=== PATIENT | female | born 1965 | race Caucasian/White ===

== ENCOUNTER 2017-07-30 16:21 | Emergency (ER) | payer OTHER ==
[~2017-07-30] VITALS: Ht 175.3 cm; Wt 136.1 kg
[~2017-07-30 16:21] MED LIST: ALBU90OI6 INH; ALPR.5; ALPR1 PO; ATEN25; ATOR40TA PO; AZIT250 PO; AZIT500 PO; CARI350; CARI350 PO; CIPHYDOTSU OT; CIPR500 PO; CLIN300 PO; CLON.5 PO; CLOT10 SUSW; Celexa40 MG PO; DOXY100 PO; DULO30; DULO60; ESTR2; ESTR2 PO; Esgic Tablet1 EACH PO; FENO145 PO; FLORICET PO; FLUV40; FURO20 PO; GABA100 PO; GLIP5; HYDACE10B; HYDACE10B PO; HYDACE5; HYDACE5 PO; HYDR1TAB94; IBUHYD PO; IBUP800; IBUP800 PO; INSULANPEN SC; KETO10 PO; LEVSOD75 PO; LORA1 PO; META800 PO; METCAR500; METF500; METF500 PO; METO10 PO; Norco 10-325 T1 EACH PO; Norco 5-325 Ta1 EACH PO; ONDA4 PO; OXYACE5T PO; OXYC30; PHENA200 PO; PIOG15; PIOG45 PO; POTCHL10ER PO; PRED10 PO; PROM25 PO; Prednisone20 MG PO; Prilosec Otc20 MG PO; QNASL8.7 GM; QUET100 PO; QUET200; QUET200 PO; RXOXYACE PO; TAMS.4ER PO; TORSE20 PO; TRAM50 PO; TRAZ100; Zithromax250 MG PO; [UNRECOGNIZED DRUG - OTHER]
[2017-07-30 17:13] LABS: BASOPHILS ABSOLUTE AUTO 0.03 K/mm3 (0.00-0.23); BASOPHILS PERCENT AUTO 0 % (0-2); EOSINOPHILS PERCENT AUTO 2 % (0-6); Hemoglobin 11.1 g/dL (11.5-16.0); IMMATURE GRAN ABSOLUTE AUTO 0.06 K/mm3 (0.00-0.10); IMMATURE GRAN PERCENT AUTO 1 % (0-1); LYMPHOCYTES ABSOLUTE AUTO 3.37 K/mm3 (0.84-5.20); LYMPHOCYTES PERCENT AUTO 26 % (21-46); MONOCYTES ABSOLUTE AUTO 0.81 K/mm3 (0.16-1.47); MONOCYTES PERCENT AUTO 6 % (4-13); Mean Corpuscular HGB 26.9 pg (26.0-34.0); Mean Corpuscular HGB Conc 30.8 g/dL (31.5-36.5); Mean Corpuscular Volume 87 fL (80-100); Mean Platelet Volume 11.8 fL (9.1-12.4); NEUTROPHILS ABSOLUTE AUTO 8.54 K/mm3 (1.96-9.15); NEUTROPHILS PERCENT AUTO 65 % (41-73); Platelet Count 217 K/mm3 (150-400); RDW Coefficient Variation 17.8 % (11.7-14.2); RDW Standard Deviation 57.1 fL (35.1-46.3); Red Blood Cell Count 4.13 M/mm3 (3.80-5.20); White Blood Cell Count 13.11 K/mm3 (4.00-11.30)
[2017-07-30 17:29] LABS: Alanine Aminotransfer (ALT/SGP 23 U/L (12-78); Albumin, Blood 3.5 g/dL (3.4-5.0); Albumin/Globulin Ratio 0.9 (0.8-1.8); Alk Phos 96 U/L (50-136); Anion Gap 10 mmol/L (6-16); Aspartate Aminotrans (AST/SGOT 13 U/L (12-37); Bilirubin, Total 0.2 mg/dL (0.1-1.0); Blood Urea Nitrogen 37 mg/dL (8-24); CO2, Blood 22 mmol/L (21-32); Calcium, Blood 9.1 mg/dL (8.5-10.1); Chloride, Blood 105 mmol/L (98-108); Creatinine, Blood 1.32 mg/dL (0.40-1.00); Globulin, Blood 4.1 g/dL (2.2-4.0); Glomerular Filtration Rate 45 (60-); Glucose, Blood 172 mg/dL (70-99); Potassium, Blood 4.8 mmol/L (3.5-5.5); Sodium, Blood 137 mmol/L (136-145); Total Protein, Blood 7.6 g/dL (6.4-8.2); Troponin I <0.015 ng/mL (0.000-0.040)
[2017-07-30 17:44] LABS: Source, Urine Clean Catch
[2017-07-30 17:47] LABS: Bilirubin, Urine Neg (Neg); Blood, Urine Neg (Neg); Glucose Qualitative, Urine Neg (Neg); Ketones, Urine Neg (Neg); Leukocyte Esterase, Urine Neg (Neg); Nitrite, Urine Neg (Neg); Protein, Urine 2+ (Neg); Urobilinogen, Urine NORM (Normal)
[2017-07-30 17:52] LABS: Appearance, Urine Clear (Clear); Color, Urine Yellow (P-Yellow)
[2017-07-30 17:53] LABS: Bacteria Not Seen /hpf; Red Blood Cells, Urine Not Seen /hpf (0-2); Squamous Epithelial Cells Not Seen /hpf (Few); White Blood Cells, Urine Not Seen /hpf (0-5)
== END 2017-07-30 19:11 | disposition left against medical advice (07) ==
LOC: ER 16:21
PROVIDERS: Physician Assistant
DX: R55 Syncope and collapse (principal); N28.9 Disorder of kidney and ureter, unspecified; E11.9 Type 2 diabetes mellitus without complications; J44.9 Chronic obstructive pulmonary disease, unspecified; F17.210 Nicotine dependence, cigarettes, uncomplicated; Z88.8 Allergy status to other drugs, medicaments and biological substances; Z88.1 Allergy status to other antibiotic agents; Z88.2 Allergy status to sulfonamides; Z88.5 Allergy status to narcotic agent; Z79.899 Other long term (current) drug therapy; Z79.4 Long term (current) use of insulin
CPT/HCPCS: 36415; 71046; 80053; 81001; 83880; 84484; 85025; 93005; 93010; 96374; 99284; J3010

== ENCOUNTER → 2017-10-02 | Outpatient (CLI) | payer OTHER ==
[2017-10-02 13:17] LABS: BASOPHILS ABSOLUTE AUTO 0.06 K/mm3 (0.00-0.23); BASOPHILS PERCENT AUTO 1 % (0-2); EOSINOPHILS ABSOLUTE AUTO 0.39 K/mm3 (0.00-0.68); EOSINOPHILS PERCENT AUTO 3 % (0-6); Hematocrit 35.8 % (33.0-51.0); Hemoglobin 11.1 g/dL (11.5-16.0); IMMATURE GRAN ABSOLUTE AUTO 0.07 K/mm3 (0.00-0.10); IMMATURE GRAN PERCENT AUTO 1 % (0-1); LYMPHOCYTES ABSOLUTE AUTO 2.66 K/mm3 (0.84-5.20); LYMPHOCYTES PERCENT AUTO 21 % (21-46); MONOCYTES ABSOLUTE AUTO 0.66 K/mm3 (0.16-1.47); MONOCYTES PERCENT AUTO 5 % (4-13); Mean Corpuscular HGB 25.9 pg (26.0-34.0); Mean Corpuscular Volume 83 fL (80-100); Mean Platelet Volume 11.6 fL (9.1-12.4); NEUTROPHILS ABSOLUTE AUTO 9.02 K/mm3 (1.96-9.15); NEUTROPHILS PERCENT AUTO 70 % (41-73); Platelet Count 212 K/mm3 (150-400); RDW Coefficient Variation 17.2 % (11.7-14.2); Red Blood Cell Count 4.29 M/mm3 (3.80-5.20); White Blood Cell Count 12.86 K/mm3 (4.00-11.30)
[2017-10-02 13:33] LABS: Albumin, Blood 3.5 g/dL (3.4-5.0); Albumin/Globulin Ratio 0.8 (0.8-1.8); Bilirubin, Total 0.4 mg/dL (0.1-1.0); Bun/Creatinine Ratio 25.2 (12.0-20.0); Calcium, Blood 9.3 mg/dL (8.5-10.1); Creatinine, Blood 1.19 mg/dL (0.40-1.00); Globulin, Blood 4.4 g/dL (2.2-4.0); Potassium, Blood 4.6 mmol/L (3.5-5.5); Total Protein, Blood 7.9 g/dL (6.4-8.2)
== END | disposition home or self-care (01) ==
LOC: LAB EV 13:10 → LAB SHORT 13:10
PROVIDERS: Physician Assistant Medical
DX: E11.9 Type 2 diabetes mellitus without complications (principal); R53.83 Other fatigue
CPT/HCPCS: 80053; 83036; 85025

== ENCOUNTER 2018-01-29 11:09 | Emergency (ER) | payer OTHER ==
[~2018-01-29] VITALS: Ht 177.8 cm; Wt 136.1 kg
[~2018-01-29 11:09] MED LIST changes: +ALBU3IS; +Augmentin 875-1 EACH PO; +BASAGLAR K100 UNIT/1 SC; +BUDE6HFA INH; +LOSA50 PO; +Ventolin/Prove6.7 GM
[2018-01-29 11:49] LABS: BASOPHILS ABSOLUTE AUTO 0.04 K/mm3 (0.00-0.23); BASOPHILS PERCENT AUTO 0 % (0-2); EOSINOPHILS ABSOLUTE AUTO 0.16 K/mm3 (0.00-0.68); EOSINOPHILS PERCENT AUTO 1 % (0-6); Hematocrit 35.7 % (33.0-51.0); Hemoglobin 10.6 g/dL (11.5-16.0); IMMATURE GRAN ABSOLUTE AUTO 0.08 K/mm3 (0.00-0.10); IMMATURE GRAN PERCENT AUTO 1 % (0-1); LYMPHOCYTES ABSOLUTE AUTO 2.42 K/mm3 (0.84-5.20); LYMPHOCYTES PERCENT AUTO 18 % (21-46); MONOCYTES ABSOLUTE AUTO 0.56 K/mm3 (0.16-1.47); MONOCYTES PERCENT AUTO 4 % (4-13); Mean Corpuscular HGB Conc 29.7 g/dL (31.5-36.5); Mean Corpuscular Volume 84 fL (80-100); Mean Platelet Volume 11.1 fL (9.1-12.4); NEUTROPHILS PERCENT AUTO 76 % (41-73); Platelet Count 185 K/mm3 (150-400); RDW Coefficient Variation 17.7 % (11.7-14.2); RDW Standard Deviation 53.8 fL (35.1-46.3); Red Blood Cell Count 4.24 M/mm3 (3.80-5.20); White Blood Cell Count 13.66 K/mm3 (4.00-11.30)
[2018-01-29 12:05] LABS: Albumin, Blood 3.1 g/dL (3.4-5.0); Albumin/Globulin Ratio 0.8 (0.8-1.8); Bilirubin, Total 0.6 mg/dL (0.1-1.0); Bun/Creatinine Ratio 20.1 (12.0-20.0); Creatinine, Blood 1.39 mg/dL (0.40-1.00); Globulin, Blood 4.1 g/dL (2.2-4.0); Potassium, Blood 4.6 mmol/L (3.5-5.5); Total Protein, Blood 7.2 g/dL (6.4-8.2)
== END 2018-01-29 13:00 | disposition left against medical advice (07) ==
LOC: ER 11:09
PROVIDERS: Emergency Medicine
DX: R10.13 Epigastric pain (principal); G89.29 Other chronic pain; R11.2 Nausea with vomiting, unspecified; E11.9 Type 2 diabetes mellitus without complications; J44.9 Chronic obstructive pulmonary disease, unspecified; F17.210 Nicotine dependence, cigarettes, uncomplicated; Z88.2 Allergy status to sulfonamides; Z88.1 Allergy status to other antibiotic agents; Z88.5 Allergy status to narcotic agent; Z88.8 Allergy status to other drugs, medicaments and biological substances; Z79.899 Other long term (current) drug therapy; Z79.4 Long term (current) use of insulin
CPT/HCPCS: 76775; 80053; 83690; 84484; 85025; 93005; 93010; 99284-25; J7030

== ENCOUNTER → 2018-04-27 | Outpatient (CLI) | payer OTHER ==
[2018-04-27 19:08] LABS: BASOPHILS ABSOLUTE AUTO 0.05 K/mm3 (0.00-0.23); BASOPHILS PERCENT AUTO 0 % (0-2); EOSINOPHILS ABSOLUTE AUTO 0.31 K/mm3 (0.00-0.68); EOSINOPHILS PERCENT AUTO 2 % (0-6); Hematocrit 32.7 % (33.0-51.0); Hemoglobin 10.3 g/dL (11.5-16.0); IMMATURE GRAN ABSOLUTE AUTO 0.07 K/mm3 (0.00-0.10); IMMATURE GRAN PERCENT AUTO 1 % (0-1); LYMPHOCYTES ABSOLUTE AUTO 3.12 K/mm3 (0.84-5.20); LYMPHOCYTES PERCENT AUTO 20 % (21-46); MONOCYTES ABSOLUTE AUTO 0.76 K/mm3 (0.16-1.47); MONOCYTES PERCENT AUTO 5 % (4-13); Mean Corpuscular HGB 25.4 pg (26.0-34.0); Mean Corpuscular HGB Conc 31.5 g/dL (31.5-36.5); Mean Corpuscular Volume 81 fL (80-100); Mean Platelet Volume 12.3 fL (9.1-12.4); NEUTROPHILS ABSOLUTE AUTO 11.22 K/mm3 (1.96-9.15); NEUTROPHILS PERCENT AUTO 72 % (41-73); Platelet Count 195 K/mm3 (150-400); RDW Coefficient Variation 19.3 % (11.7-14.2); Red Blood Cell Count 4.05 M/mm3 (3.80-5.20); White Blood Cell Count 15.53 K/mm3 (4.00-11.30)
[2018-04-27 19:13] LABS: Bun/Creatinine Ratio 18.9 (12.0-20.0); Calcium, Blood 8.3 mg/dL (8.5-10.1); Creatinine, Blood 1.48 mg/dL (0.40-1.00); Potassium, Blood 4.4 mmol/L (3.5-5.5)
== END | disposition home or self-care (01) ==
LOC: LAB EV 19:02 → LAB SHORT 19:02
PROVIDERS: Physician Assistant Surgical
DX: R06.02 Shortness of breath (principal)
CPT/HCPCS: 80048; 83880; 85025

== ENCOUNTER 2018-07-14 18:30 | Emergency (ER) | payer OTHER ==
[~2018-07-14] VITALS: Ht 177.8 cm; Wt 134.7 kg
[~2018-07-14 18:30] MED LIST changes: -ALBU3IS; +ALBU3IS INH; -ATEN25; +ATEN25 PO; -METCAR500; +METCAR500 PO; -Ventolin/Prove6.7 GM; +Ventolin/Prove6.7 GM PO
[2018-07-14] MEDS ORDERED: ONDA4ODT MM (20:49)
== END 2018-07-14 21:08 | disposition home or self-care (01) ==
LOC: ER 18:30
DX: S06.0X1A Concussion with loss of consciousness of 30 minutes or less, initial encounter (principal); E11.9 Type 2 diabetes mellitus without complications; J44.9 Chronic obstructive pulmonary disease, unspecified; F17.210 Nicotine dependence, cigarettes, uncomplicated; Z88.2 Allergy status to sulfonamides; Z88.1 Allergy status to other antibiotic agents; Z88.5 Allergy status to narcotic agent; Z88.8 Allergy status to other drugs, medicaments and biological substances; Z79.899 Other long term (current) drug therapy; Z79.4 Long term (current) use of insulin
CPT/HCPCS: 70450; 72040; 96372; 99284-25; A9270; A9270-GY; J0780; J1170

== ENCOUNTER 2018-09-21 16:00 | Emergency (ER) | payer OTHER ==
[~2018-09-21] VITALS: Ht 177.8 cm; Wt 134.7 kg
[~2018-09-21 16:00] MED LIST changes: +ONDA4ODT MM
[2018-09-21] MEDS ORDERED: CYCL10 PO (17:54)
== END 2018-09-21 18:00 | disposition home or self-care (01) ==
LOC: ER 16:00
DX: M54.5 Low back pain (principal); G89.29 Other chronic pain; M19.90 Unspecified osteoarthritis, unspecified site; E11.40 Type 2 diabetes mellitus with diabetic neuropathy, unspecified; J44.9 Chronic obstructive pulmonary disease, unspecified; F17.210 Nicotine dependence, cigarettes, uncomplicated; Z88.2 Allergy status to sulfonamides; Z88.5 Allergy status to narcotic agent; Z88.8 Allergy status to other drugs, medicaments and biological substances; Z79.4 Long term (current) use of insulin; Z79.899 Other long term (current) drug therapy
CPT/HCPCS: 72100; 96372; 99283-25; J1885

== ENCOUNTER → 2018-10-16 | Outpatient (CLI) | payer OTHER ==
[~2018-10-16] MED LIST changes: +CLIN300; +CYCL10 PO; +DOXY100; +METR500; +Ultram50 MG PO
== END | disposition home or self-care (01) ==
LOC: LAB SHORT 14:33 → LAB 14:33
DX: L02.225 Furuncle of perineum (principal)
CPT/HCPCS: 87070; 87075; 87076; 87185; 87205

== ENCOUNTER → 2018-11-05 | Outpatient (CLI) | payer OTHER | END | disposition home or self-care (01) | LOC: LAB 16:21 → LAB SHORT 16:21 | DX: L08.9 Local infection of the skin and subcutaneous tissue, unspecified (principal) | CPT/HCPCS: 87070; 87205 ==

== ENCOUNTER 2018-11-25 19:38 | Emergency (ER) | payer OTHER ==
[~2018-11-25] VITALS: Ht 177.8 cm; Wt 133.8 kg
[~2018-11-25 19:38] MED LIST changes: -CLIN300; -DOXY100; -METR500; -Ultram50 MG PO
[2018-11-25] MEDS ORDERED: CLIN300 (19:47)
[2018-11-25] MEDS ORDERED: DOXY100 (19:47)
[2018-11-25] MEDS ORDERED: METR500 (19:47)
[2018-11-25 20:24] LABS: Source, Urine Clean Catch
[2018-11-25 20:29] LABS: BASOPHILS ABSOLUTE AUTO 0.04 K/mm3 (0.00-0.23); BASOPHILS PERCENT AUTO 0 % (0-2); EOSINOPHILS ABSOLUTE AUTO 0.25 K/mm3 (0.00-0.68); EOSINOPHILS PERCENT AUTO 2 % (0-6); Hematocrit 34.9 % (33.0-51.0); Hemoglobin 10.5 g/dL (11.5-16.0); IMMATURE GRAN ABSOLUTE AUTO 0.05 K/mm3 (0.00-0.10); IMMATURE GRAN PERCENT AUTO 0 % (0-1); LYMPHOCYTES ABSOLUTE AUTO 3.32 K/mm3 (0.84-5.20); LYMPHOCYTES PERCENT AUTO 23 % (21-46); MONOCYTES ABSOLUTE AUTO 0.91 K/mm3 (0.16-1.47); MONOCYTES PERCENT AUTO 6 % (4-13); Mean Corpuscular HGB 25.5 pg (26.0-34.0); Mean Corpuscular HGB Conc 30.1 g/dL (31.5-36.5); Mean Corpuscular Volume 85 fL (80-100); NEUTROPHILS ABSOLUTE AUTO 10.13 K/mm3 (1.96-9.15); NEUTROPHILS PERCENT AUTO 69 % (41-73); Platelet Count 207 K/mm3 (150-400); RDW Coefficient Variation 16.9 % (11.7-14.2); RDW Standard Deviation 52.1 fL (35.1-46.3); Red Blood Cell Count 4.11 M/mm3 (3.80-5.20)
[2018-11-25 20:30] LABS: Bilirubin, Urine Neg (Neg); Blood, Urine Neg (Neg); Glucose Qualitative, Urine Neg (Neg); Ketones, Urine Neg (Neg); Leukocyte Esterase, Urine 1+ (Neg); Nitrite, Urine Neg (Neg); Protein, Urine 3+ (Neg); Specific Gravity, Urine 1.005 (1.003-1.022); Urobilinogen, Urine NORM (Normal)
[2018-11-25 20:31] LABS: Appearance, Urine Clear (Clear); Color, Urine Yellow (P-Yellow)
[2018-11-25 20:37] LABS: Bacteria Mod /hpf; Red Blood Cells, Urine 0-2 /hpf (0-2); Squamous Epithelial Cells Mod /hpf (Few)
[2018-11-25 20:50] LABS: Alanine Aminotransfer (ALT/SGP 38 U/L (12-78); Albumin, Blood 3.2 g/dL (3.4-5.0); Albumin/Globulin Ratio 0.7 (0.8-1.8); Alk Phos 126 U/L (50-136); Anion Gap 10 mmol/L (6-16); Aspartate Aminotrans (AST/SGOT 16 U/L (12-37); Bilirubin, Total 0.4 mg/dL (0.1-1.0); Blood Urea Nitrogen 26 mg/dL (8-24); Bun/Creatinine Ratio 21.3 (12.0-20.0); CO2, Blood 24 mmol/L (21-32); Calcium, Blood 9.2 mg/dL (8.5-10.1); Chloride, Blood 104 mmol/L (98-108); Creatinine, Blood 1.22 mg/dL (0.40-1.00); Globulin, Blood 4.4 g/dL (2.2-4.0); Glomerular Filtration Rate 49 (60-); Glucose, Blood 198 mg/dL (70-99); Potassium, Blood 4.3 mmol/L (3.5-5.5); Sodium, Blood 138 mmol/L (136-145); Total Protein, Blood 7.6 g/dL (6.4-8.2); Troponin I <0.015 ng/mL (0.000-0.040)
[2018-11-26] MEDS ORDERED: Ultram50 MG PO (00:53)
== END 2018-11-26 01:10 | disposition home or self-care (01) ==
LOC: ER 19:38
PROVIDERS: Physician Assistant
DX: R16.1 Splenomegaly, not elsewhere classified (principal); R10.12 Left upper quadrant pain; E11.9 Type 2 diabetes mellitus without complications; J44.9 Chronic obstructive pulmonary disease, unspecified; F17.210 Nicotine dependence, cigarettes, uncomplicated; Z88.8 Allergy status to other drugs, medicaments and biological substances; Z88.2 Allergy status to sulfonamides; Z88.5 Allergy status to narcotic agent; Z79.899 Other long term (current) drug therapy; Z79.4 Long term (current) use of insulin
CPT/HCPCS: 36415; 71046; 74176; 80053; 81001; 83690; 84484; 85025; 87086; 93005; 93010; 94640; 96361; 96374; 96375; 99284-25; J2405; J3010; J7120

== ENCOUNTER → 2019-12-01 | Outpatient (CLI) | payer OTHER ==
[~2019-12-01] MED LIST changes: +CLIN300; +DOXY100; +METR500; +Ultram50 MG PO
== END ==
LOC: LAB 12:40 → LAB SHORT 12:40
DX: L02.91 Cutaneous abscess, unspecified (principal)
CPT/HCPCS: 87070; 87205

== ENCOUNTER → 2019-12-04 | Outpatient (CLI) | payer OTHER ==
[2019-12-04 16:17] LABS: U Amphetamine Screen Not Detected; U Barbituate Screen Not Detected; U Benzodiazapine Screen DETECTED; U Buprenorphine Screen Not Detected; U Cannabinoids Screen DETECTED; U Cocaine Screen Not Detected; U Methadone Screen Not Detected; U Methamphetamine Screen Not Detected; U Opiates Screen Not Detected; U Oxycodone Screen Not Detected; U Phencyclidine Screen Not Detected; U Propoxyphene Screen Not Detected
[2019-12-11 13:08] LABS: TRICYCLIC ANTIDEP Negative ng/mL (Cutoff=100)
== END | disposition home or self-care (01) ==
LOC: LAB 15:26 → LAB SHORT 15:26
PROVIDERS: Family Medicine
DX: Z51.81 Encounter for therapeutic drug level monitoring (principal); Z79.899 Other long term (current) drug therapy
CPT/HCPCS: G0480; G0481

== ENCOUNTER 2022-01-12 12:45 | Inpatient (IN) | payer OTHER ==
[~2022-01-12] VITALS: Ht 167.6 cm; Wt 124.9 kg
[~2022-01-12 12:45] MED LIST changes: +CEPH500 PO
[2022-01-12 12:53] LABS: PCO2 Arterial 46.6 mmHg (35-45); PO2 Arterial 192 mmHg (80-100); pH Blood Arterial 7.29 (7.35-7.45)
[2022-01-12 13:46] LABS: Hemoglobin 11.4 g/dL (11.5-16.0); Mean Corpuscular HGB 25.1 pg (26.0-34.0); Mean Corpuscular Volume 84 fL (80-100); Platelet Count 167 K/mm3 (150-400); RDW Coefficient Variation 19.5 % (11.7-14.2); RDW Standard Deviation 58.6 fL (35.1-46.3); Red Blood Cell Count 4.55 M/mm3 (3.80-5.20); White Blood Cell Count 46.87 K/mm3 (4.00-11.30)
[2022-01-12 14:00] LABS: Albumin, Blood 2.5 g/dL (3.4-5.0); Albumin/Globulin Ratio 0.6 (0.8-1.8); Bilirubin, Direct 0.3 mg/dL (0.0-0.3); Bilirubin, Indirect 0.3 mg/dL (0.1-0.7); Bilirubin, Total 0.6 mg/dL (0.1-1.0); Bun/Creatinine Ratio 14.9 (12.0-20.0); Calcium, Blood 7.8 mg/dL (8.5-10.1); Creatinine, Blood 2.81 mg/dL (0.40-1.00); Globulin, Blood 4.2 g/dL (2.2-4.0); Magnesium, Blood 1.4 mg/dL (1.6-2.4); Phosphorus, Blood 4.2 mg/dL (2.5-4.9); Potassium, Blood 3.6 mmol/L (3.5-5.5); Total Protein, Blood 6.7 g/dL (6.4-8.2)
[2022-01-12 14:11] LABS: International Normalized Ratio 1.19; Prothrombin Time Results 12.4 Sec (9.7-11.5)
[2022-01-12 14:37] LABS: BAND PERCENT MAN 40 % (0-8); BASOPHILS PERCENT MAN 0 % (0-2); EOSINOPHILS PERCENT MAN 0 % (0-6); LYMPHOCYTES PERCENT MAN 3 % (21-46); METAMYELOCYTE ABSOLUTE MAN 2.34 K/mm3 (0.00-0.00); METAMYELOCYTE PERCENT MAN 5 % (0-0); MONOCYTES PERCENT MAN 3 % (4-13); MYELOCYTE ABSOLUTE MAN 0.46 K/mm3 (0.00-0.00); MYELOCYTE PERCENT MAN 1 % (0-0); NEUTROPHILS ABSOLUTE MAN 41.24 K/mm3 (1.96-9.15); SEG NEUTROPHILS PERCENT MAN 48 % (41-73); TOTAL CELLS COUNTED 100
[2022-01-12] MEDS ORDERED: HYDACE10B (15:45)
[2022-01-12 15:51] LABS: PCO2 Arterial 50.9 mmHg (35-45); pH Blood Arterial 7.26 (7.35-7.45)
[2022-01-12 17:21] LABS: Influenza B, PCR NEGATIVE (NEGATIVE); Resp Syncytial Virus, PCR NEGATIVE (NEGATIVE); SARS-Cov-2 (COVID-19) PCR, MMC NEGATIVE (NEGATIVE)
[2022-01-12 17:23] LABS: Influenza A, PCR POSITIVE (NEGATIVE)
[2022-01-12 18:46] LABS: Bicarbonate Venous 18.9 mmol/L (24.0-30.0); PCO2 Venous 62.2 mmHg (38-42); PO2 Venous 67.1 mmHg (38-42); pH Blood Venous 7.17 (7.34-7.37)
--- NOTE | 2022-01-12 19:19 | NUR ---
SHIFT SUMMARY: Pt admitted to ICU 9 this afternoon. On admission pt is very anxious and requesting Xanax, and to "put me to sleep". Precedex was started. Pt received 2 mg ativan for power glide placement. Difficult placement due to anxiety and restlessness. BIPAP currently at 40% 18/8. BPs stable. HR tachycardic. Report given to corduroy cutting supervisor RN.
[2022-01-12 23:07] LABS: Source, Urine Foley catheter
[2022-01-12 23:09] LABS: Appearance, Urine Hazy (Clear); Blood, Urine 1+ (Neg); Color, Urine Amber (P-Yellow); Glucose Qualitative, Urine Neg (Neg); Ketones, Urine 1+ (Neg); Leukocyte Esterase, Urine Neg (Neg); Nitrite, Urine Neg (Neg); Protein, Urine 2+ (Neg); Urobilinogen, Urine 1+ (Normal)
[2022-01-12 23:19] LABS: Bilirubin, Urine 1+ (Neg)
[2022-01-12 23:24] LABS: Bacteria Many /hpf; Red Blood Cells, Urine 0-2 /hpf (0-2); Renal Epithelial Rare /hpf (0-Rare); Squamous Epithelial Cells Few /hpf (Few)
[2022-01-13 00:27] LABS: PCO2 Arterial 54.6 mmHg (35-45); PO2 Arterial 90.8 mmHg (80-100); pH Blood Arterial 7.25 (7.35-7.45)
[2022-01-13 03:41] LABS: Base Excess Venous -0.8 mmol/L; Bicarbonate Venous 23.1 mmol/L (24.0-30.0); PCO2 Venous 57.9 mmHg (38-42); PO2 Venous 59.4 mmHg (38-42); pH Blood Venous 7.26 (7.34-7.37)
[2022-01-13 03:49] LABS: Hematocrit 32.3 % (33.0-51.0); Hemoglobin 9.6 g/dL (11.5-16.0); Mean Corpuscular HGB 24.6 pg (26.0-34.0); Mean Corpuscular HGB Conc 29.7 g/dL (31.5-36.5); Mean Corpuscular Volume 83 fL (80-100); Mean Platelet Volume 12.5 fL (9.1-12.4); Platelet Count 175 K/mm3 (150-400); RDW Coefficient Variation 18.8 % (11.7-14.2); RDW Standard Deviation 56.8 fL (35.1-46.3); Red Blood Cell Count 3.91 M/mm3 (3.80-5.20); White Blood Cell Count 26.18 K/mm3 (4.00-11.30)
[2022-01-13 04:05] LABS: Alanine Aminotransfer (ALT/SGP 23 U/L (12-78); Albumin, Blood 2.1 g/dL (3.4-5.0); Albumin/Globulin Ratio 0.6 (0.8-1.8); Alk Phos 57 U/L (50-136); Anion Gap 8 mmol/L (6-16); Aspartate Aminotrans (AST/SGOT 24 U/L (12-37); Bilirubin, Total 0.3 mg/dL (0.1-1.0); Blood Urea Nitrogen 56 mg/dL (8-24); Bun/Creatinine Ratio 15.9 (12.0-20.0); CO2, Blood 29 mmol/L (21-32); Calcium, Blood 6.9 mg/dL (8.5-10.1); Chloride, Blood 99 mmol/L (98-108); Creatinine, Blood 3.53 mg/dL (0.40-1.00); Globulin, Blood 3.8 g/dL (2.2-4.0); Glomerular Filtration Rate 15 (60-); Glucose, Blood 279 mg/dL (70-99); Magnesium, Blood 1.7 mg/dL (1.6-2.4); Potassium, Blood 4.6 mmol/L (3.5-5.5); Sodium, Blood 136 mmol/L (136-145); Total Protein, Blood 5.9 g/dL (6.4-8.2); Vancomycin, Random 24.2 ug/mL
[2022-01-13 04:11] LABS: BAND PERCENT MAN 29 % (0-8); BASOPHILS PERCENT MAN 0 % (0-2); EOSINOPHILS PERCENT MAN 0 % (0-6); LYMPHOCYTES ABSOLUTE MAN 0.52 K/mm3 (0.84-5.20); LYMPHOCYTES PERCENT MAN 2 % (21-46); METAMYELOCYTE ABSOLUTE MAN 0.78 K/mm3 (0.00-0.00); METAMYELOCYTE PERCENT MAN 3 % (0-0); MONOCYTES ABSOLUTE MAN 0.52 K/mm3 (0.16-1.47); MONOCYTES PERCENT MAN 2 % (4-13); NEUTROPHILS ABSOLUTE MAN 24.34 K/mm3 (1.96-9.15); SEG NEUTROPHILS PERCENT MAN 64 % (41-73); TOTAL CELLS COUNTED 100
--- NOTE | 2022-01-13 06:04 | NUR ---
SHIFT SUMMERY PT HAS BEEN ON CONTINUOUS BIPAP THROUGHT THE NIGHT. OXYGEN SAT >95%. SHE HAS BEEN SR ON THE MONITOR. BP IS WNL AT THIS TIME. SHE IS SEDATED ON PRECEDEX DRIP AND HAS SOFT WRIST RESTRAINTS IN PLACE. SHE WILL BECOME AGITATED INTERMITTANTLY AND IS NOT EASILY REDIRECTABLE. SHE IS ORIENTED TO SELF. SHE HAS A RODRIGUEZ CATHETER DRAINING TEA COLORED URINE. UA SENT FOR ANALYSIS. PT HAS BEEN AFEBRILE.
--- NOTE | 2022-01-13 07:00 | NUR ---
ASSUME CARE: I have assume care of this patient.
--- NOTE | 2022-01-13 08:01 | NUR ---
PHONE CALL: Pt's daughter updated on pt status. She plans to come in to hospital in a few hours.
--- NOTE | 2022-01-13 10:04 | NUR ---
UPDATE: Pt's daughter called and notified of updated plan of care. Plan to intubated shortly.
--- NOTE | 2022-01-13 10:32 | NUR ---
INTUBATION: 1032: 80MG pushed by intesivist. 50mg rocuronium pushed. 1033: pt intubated with 7.5 ETT, 25 at teeth. Positive color change, bilateral breath sounds.
[2022-01-13 13:43] LABS: Base Excess Venous -3.4 mmol/L; Bicarbonate Venous 20.9 mmol/L (24.0-30.0); PCO2 Venous 62.9 mmHg (38-42)
--- NOTE | 2022-01-13 14:00 | NUR ---
PROVIDER UPDATE: Dr Mullins notified of VBG results
[2022-01-13 16:37] LABS: Base Excess Venous -3.9 mmol/L; Bicarbonate Venous 20.6 mmol/L (24.0-30.0); PCO2 Venous 62.1 mmHg (38-42)
--- NOTE | 2022-01-13 19:45 | NUR ---
SHIFT SUMMARY: NEURO: Pt oriented to self and KHAN prior to intubation. pupils 2mm PERRLA +gag/+cough. See flowsheets for sedation CARDIAC: Peripheral pulses 2+. Sinus rhythm on monitor. BP's soft, responded well to two liters of LR. Norepi on standby, not yet required. RESPIRATORY: pt intubated this morning. Minimal in-line secreations from ETT. Fi02 currently 40% GI/: hay patent and draining dark sohail urine. Minimal UOP. No BM. OG placed and VHP started at 20mls/hr. SKIN: no new breakdown noted. Right sided power glide placed today. PSYCH/SOCIAL: family at bedside this afternoon. pt still very anxious.
[2022-01-13 20:42] LABS: Base Excess Venous -2.7 mmol/L; Bicarbonate Venous 21.9 mmol/L (24.0-30.0); PCO2 Venous 46.7 mmHg (38-42); pH Blood Venous 7.31 (7.34-7.37)
[2022-01-14 04:45] LABS: Albumin, Blood 1.9 g/dL (3.4-5.0); Anion Gap 8 mmol/L (6-16); Blood Urea Nitrogen 83 mg/dL (8-24); Bun/Creatinine Ratio 21.8 (12.0-20.0); CO2, Blood 26 mmol/L (21-32); Calcium, Blood 7.1 mg/dL (8.5-10.1); Chloride, Blood 100 mmol/L (98-108); Creatinine, Blood 3.81 mg/dL (0.40-1.00); Glomerular Filtration Rate 13 (60-); Glucose, Blood 343 mg/dL (70-99); Magnesium, Blood 1.9 mg/dL (1.6-2.4); Phosphorus, Blood 4.8 mg/dL (2.5-4.9); Sodium, Blood 134 mmol/L (136-145); Vancomycin, Random 14.7 ug/mL
--- NOTE | 2022-01-14 06:03 | NUR ---
SHIFT SUMMARY: PT. REMAINED STABLE OVERNIGHT. PT. IS STILL SEDATED ON PROPOFOL AND PRECEDEX BUT WAS STILL HAVING FITS OF NON-COMPLIANCE WITH VENTILATOR. PRN ROCURONIUM WAS ADMINISTERED ONCE OVERNIGHT AFTER PT. WAS PLACED ON A BIS MONITOR TO ENSURE ADEQUATE SEDATION. PT. O2 REQUIREMENTS INCREASED BY 10% FIO2. MAKING THE VENT SETTINGS CURRENTLY 30/470/50/5. PT. VBG IMPROVED TONIGHT. PT. STILL HAS A RODRIGUEZ DRAINING TO GRAVITY, AND HAD 300 UOP OVERNIGHT. PT. KIDNEY FUNCTION IS DECLNING AND CREATININE AND BUN HAVE GONE UP WHILE GFR HAS GONE DOWN. PT. IS STILL RECIEVING TF NOW AT GOAL. PT. RESTING COMFORTABLY AT THIS TIME.
--- NOTE | 2022-01-14 11:10 | NUR ---
"Spiritual Care Visit | Pt. Request Pt. is intubated and unresponsive. Pts. sister is present and welcomes my visit. Sister is pleasant and this oil boiler facilitated a Life Review. Sister displayed evidence of hope, and at times appropriate grief. Prayed with sister and the Pt. Sister verbalized gratitude for the spiritual care visit."
--- NOTE | 2022-01-14 16:36 | NUR ---
SHIFT SUMMARY PT REMAINS INTUBATED AND SEDATED. VENT SETTINGS CHANGED TO AC 24, TV 400, PEEP 8, FIO2 50% THIS MORNING. PT WITH EPISODES OF RESTLESSNESS THIS SHIFT REQUIRING INCREASED SEDATION. PROPOFOL INFUSING AT 65 MCG/KG/MIN, PRECEDEX AT 1.0 MCG/KG/HR, AND NS TKO. WHEN PT IS MORE AWAKE PT MOVES ALL EXTREMITIES, BUT DOES NOT FOLLOW COMMANDS. PT WITH RED/RUST COLORED OUTPUT WITH ETT SUCTION, DR TOVAR AWARE. VITAL SIGNS HAVE REMAINED STABLE. OGT IN PLACE WITH TF INFUSING AT 20 ML/HR GOAL RATE. RODRIGUEZ IN PLACE WITH IMPROVED CLEAR YELLOW URINE OUTPUT. DR COREY UPDATED THIS AFTERNOON. NO PLANS FOR DIALYSIS AT THIS TIME. SBW RESTRAINTS IN PLACE. PT DAUGHTER AT BEDSIDE AND UPDATED TO PLAN OF CARE. WILL CONTINUE TO MONITOR AND REPORT OFF TO ONCOMING RN.
[2022-01-15 04:06] LABS: BASOPHILS ABSOLUTE AUTO 0.08 K/mm3 (0.00-0.23); BASOPHILS PERCENT AUTO 0 % (0-2); EOSINOPHILS ABSOLUTE AUTO 0.29 K/mm3 (0.00-0.68); EOSINOPHILS PERCENT AUTO 1 % (0-6); Hematocrit 29.3 % (33.0-51.0); Hemoglobin 8.5 g/dL (11.5-16.0); IMMATURE GRAN ABSOLUTE AUTO 0.77 K/mm3 (0.00-0.10); IMMATURE GRAN PERCENT AUTO 2 % (0-1); LYMPHOCYTES ABSOLUTE AUTO 0.59 K/mm3 (0.84-5.20); LYMPHOCYTES PERCENT AUTO 2 % (21-46); MONOCYTES ABSOLUTE AUTO 1.04 K/mm3 (0.16-1.47); MONOCYTES PERCENT AUTO 3 % (4-13); Mean Corpuscular HGB 24.9 pg (26.0-34.0); Mean Corpuscular Volume 86 fL (80-100); Mean Platelet Volume 11.7 fL (9.1-12.4); NEUTROPHILS ABSOLUTE AUTO 31.15 K/mm3 (1.96-9.15); NEUTROPHILS PERCENT AUTO 92 % (41-73); NRBC ABSOLUTE 0.03 K/mm3 (0.00-0.02); NRBC Auto 0.1 /100 WBC (0.0-0.2); Platelet Count 155 K/mm3 (150-400); RDW Standard Deviation 59.7 fL (35.1-46.3); Red Blood Cell Count 3.42 M/mm3 (3.80-5.20); White Blood Cell Count 33.92 K/mm3 (4.00-11.30)
[2022-01-15 04:27] LABS: Alanine Aminotransfer (ALT/SGP 24 U/L (12-78); Albumin, Blood 1.7 g/dL (3.4-5.0); Albumin/Globulin Ratio 0.4 (0.8-1.8); Alk Phos 65 U/L (50-136); Anion Gap 10 mmol/L (6-16); Aspartate Aminotrans (AST/SGOT 20 U/L (12-37); Bilirubin, Total 0.4 mg/dL (0.1-1.0); Blood Urea Nitrogen 89 mg/dL (8-24); Bun/Creatinine Ratio 39.4 (12.0-20.0); CO2, Blood 24 mmol/L (21-32); Calcium, Blood 7.3 mg/dL (8.5-10.1); Chloride, Blood 103 mmol/L (98-108); Creatinine, Blood 2.26 mg/dL (0.40-1.00); Globulin, Blood 4.3 g/dL (2.2-4.0); Glomerular Filtration Rate 25 (60-); Glucose, Blood 337 mg/dL (70-99); Magnesium, Blood 2.3 mg/dL (1.6-2.4); Phosphorus, Blood 5.2 mg/dL (2.5-4.9); Potassium, Blood 4.2 mmol/L (3.5-5.5); Sodium, Blood 137 mmol/L (136-145); Vancomycin, Random 16.3 ug/mL
[2022-01-15 05:27] LABS: PCO2 Arterial 61.2 mmHg (35-45); PO2 Arterial 70.4 mmHg (80-100)
[2022-01-15 05:29] LABS: pH Blood Arterial 7.22 (7.35-7.45)
--- NOTE | 2022-01-15 05:29 | NUR ---
SHIFT SUMMARY: PT. WAS STABLE OVERNIGHT, BUT DID REQUIRE FURTHER SEDATION. PROPOFOL IS STILL RUNNING AT 65, PRECEDEX AT 1.0, BUT UPON PT. FIGHTING VENTILATOR, MOVING EXTREMITIES, AND OCCASIONALLY OPENING EYES, A FENTANYL DRIP WAS STARTED TO HELP VENT COMPLIANCE. FENTANYL SCIENTIFIC ADVISOR IS NOW GOING AT 25MCG/HR AND SEEMS TO BE HELPING PT. SIGNIFICANTLY. BIS MONITOR WAS REAPPLIED AND IS NOW SHOWING ADEQUATE SEDATION COMPARED TO WHEN FIRST APPLIED AND PT. HAD A BIS SCORE IN THE 80S AND WAS AWAKE. RESPIRATORY SECRETIONS HAVE BEEN SCANT AND THIN AND VENT SETTINGS ARE 24/400/50/10 AND AN ABG WAS COLLECTED THIS AM. PT. HAS BEEN NSR AND BP WNL. PT. STILL ON TF AT GOAL AND SEEMS TO BE DOING WELL WITH THE NEW SLIDING SCALE FOR BG CONTROL. PT STILL HAS A PATENT RODRIGUEZ AND PUT OUT 1000ML OVERNIGHT. PT. SEEMS TO BE RESTING COMFORTABLY AT THIS TIME.
--- NOTE | 2022-01-15 06:49 | NUR ---
PT. WENT INTO V-TACH THIS AM AROUND 0600 FOR 2-3 BEATS, THEN CARIDOVERTED INTO SVT. PT. HAD HR OF 210 AND WAS NOT VENTILATING, SHE HAD TO BE BAGGED BY THE RESPIRATORY THERAPIST WHILE ADENOSINE WAS ADMINISTERED. 6MG WAS ADMINISTERED WHICH DID NOT CARDIOVERT THE PT., THEN 12MG WERE ADMINISTERED WHICH CAUSED THE PT. TO CARDIOVERT TO SINUS TACH. PT. BEGAN VENTILATING AGAIN AND HR IS NOW 93.
--- NOTE | 2022-01-15 09:30 | NUR ---
CHEST TUBE LS NOTED TO BE ABSENT TO RIGHT LUNG FEILDS. DR TOVAR REVIEWING CXR AND PT WITH RIGHT PNEUMO. DR TOVAR PLACED PIGTAIL CHEST TUBE TO RIGHT MID AXILLARY CHEST WITH IMMEDIATE AIR RELEASE NOTED. PT CONNECTED TO 20 CM WALL SUCTION PLEURAVAC. PT CONTINUED TO HAVE LARGE AIR LEAK INITIALLY AFTER CHEST TUBE PLACEMENT. AIRLEAK HAS LESSENED TO OCCASIONAL BUBBLING NOTED WITH RESPIRATIONS. NO FLUID OUTPUT FROM CHEST TUBE NOTED AT THIS TIME.
[2022-01-15 12:05] LABS: Automated BF RBC Count 0.026 M/mm3 (0-0)
[2022-01-15 12:33] LABS: Automated BF WBC Count 47.194 K/mm3 (0-999); Body Fluid WBC Count 47194 /mm3 (0-999); RBC Count, Body Fluid 26000 /mm3 (0-0)
[2022-01-15 12:42] LABS: Glucose, Body Fluid 215 mg/dL
[2022-01-15 13:11] LABS: Appearance, Body Fluid Turbid (Clear); Total Cell Count, Body Fluid 100
[2022-01-15 15:14] LABS: Lactate Dehydrogenase, Body Fl >8000 U/L
--- NOTE | 2022-01-15 17:44 | NUR ---
SHIFT SUMMARY PT REMAINS INTUBATED AND SEDATED. VENT SETTINGS AC 24, TV 400, PEEP 10, FI02 70%. CHEST TUBE TO RIGHT MID AXILLARY SITE REMAINS C/D/I WITH SMALL AMOUNT OF SEROUS OUTPUT NOTED THIS SHIFT. INTERMITTENT AIRLEAK REMAINS. PT SEDATED WITH PROPOFOL AT 55 MCG/KG/MIN, PRECEDEX 1.0 MCG/KG/HR, AND FENTANYL PAPER BAG INSPECTOR AT 25 MCG/HR. OGT REMAINS IN PLACE WITH TF INFUSING AT GOAL RATE. RODRIGUEZ REMAINS IN PLACE WITH DARK YELLOW URINE OUTPUT NOTED. SBW RESTRAINTS REMAIN IN PLACE. VITAL SIGNS STABLE. PT FAMILY AT BEDSIDE THIS AFTERNOON, UPDATED TO CURRENT CONDITION AND PLAN OF CARE. WILL CONTINUE TO MONITOR AND REPORT OFF TO ONCOMING RN.
[2022-01-16 04:41] LABS: BASOPHILS ABSOLUTE AUTO 0.07 K/mm3 (0.00-0.23); BASOPHILS PERCENT AUTO 0 % (0-2); EOSINOPHILS ABSOLUTE AUTO 0.01 K/mm3 (0.00-0.68); EOSINOPHILS PERCENT AUTO 0 % (0-6); Hematocrit 32.5 % (33.0-51.0); Hemoglobin 9.3 g/dL (11.5-16.0); IMMATURE GRAN ABSOLUTE AUTO 1.08 K/mm3 (0.00-0.10); IMMATURE GRAN PERCENT AUTO 4 % (0-1); LYMPHOCYTES ABSOLUTE AUTO 1.48 K/mm3 (0.84-5.20); LYMPHOCYTES PERCENT AUTO 5 % (21-46); MONOCYTES ABSOLUTE AUTO 1.12 K/mm3 (0.16-1.47); MONOCYTES PERCENT AUTO 4 % (4-13); Mean Corpuscular HGB 24.7 pg (26.0-34.0); Mean Corpuscular HGB Conc 28.6 g/dL (31.5-36.5); Mean Corpuscular Volume 86 fL (80-100); NEUTROPHILS ABSOLUTE AUTO 23.74 K/mm3 (1.96-9.15); NEUTROPHILS PERCENT AUTO 86 % (41-73); NRBC ABSOLUTE 0.04 K/mm3 (0.00-0.02); NRBC Auto 0.1 /100 WBC (0.0-0.2); Platelet Count 161 K/mm3 (150-400); RDW Standard Deviation 60.2 fL (35.1-46.3); Red Blood Cell Count 3.76 M/mm3 (3.80-5.20)
[2022-01-16 05:23] LABS: Alanine Aminotransfer (ALT/SGP 23 U/L (12-78); Albumin, Blood 1.9 g/dL (3.4-5.0); Albumin/Globulin Ratio 0.4 (0.8-1.8); Alk Phos 69 U/L (50-136); Anion Gap 4 mmol/L (6-16); Aspartate Aminotrans (AST/SGOT 19 U/L (12-37); Bilirubin, Total 0.5 mg/dL (0.1-1.0); Blood Urea Nitrogen 95 mg/dL (8-24); CO2, Blood 27 mmol/L (21-32); Calcium, Blood 8.1 mg/dL (8.5-10.1); Chloride, Blood 106 mmol/L (98-108); Creatinine, Blood 1.94 mg/dL (0.40-1.00); Globulin, Blood 4.5 g/dL (2.2-4.0); Glomerular Filtration Rate 30 (60-); Glucose, Blood 119 mg/dL (70-99); Lactate Dehydrogenase (Ld),Bld 316 U/L (100-240); Magnesium, Blood 2.6 mg/dL (1.6-2.4); Phosphorus, Blood 5.7 mg/dL (2.5-4.9); Potassium, Blood 4.6 mmol/L (3.5-5.5); Sodium, Blood 137 mmol/L (136-145); Total Protein, Blood 6.4 g/dL (6.4-8.2); Vancomycin, Random 15.8 ug/mL
[2022-01-16 05:36] LABS: PO2 Arterial 82.2 mmHg (80-100)
[2022-01-16 05:37] LABS: PCO2 Arterial 71.4 mmHg (35-45); pH Blood Arterial 7.17 (7.35-7.45)
--- NOTE | 2022-01-16 06:14 | NUR ---
SHIFT SUMMARY: PT. REMAINED STABLE OVERNIGHT. PT. IS STILL SEDATED BUT RESPONDING MUCH LESS THAN LAST NIGHT TO PAIN. PT. PUT OUT 100 FROM CHEST TUBE WHICH IS DRAINING TO -20CM SUCTION, AND HAD A CRITICAL PH OF 7.[address] TOVAR WAS CALLED AND VENT SETTING WHERE CHANGED, THEY ARE NOW FOLLOWS: 30/400/70/10. FLOR BLOOD WAS SUCTIONED FROM THE ETT THIS AM, GUY AWARE. PT. HAS BEEN IN NSR THROUGHOUT THE NIGHT WITH BP WNL. PT. IS STILL RECIEVING TF AT 20 WHICH IS GOAL RATE AND HAS NOT HAD A BM OVERNIGHT. RODRIGUEZ IS STILL PATENT AND HAD A UOP OF 600 OVERNIGHT. SKIN IS STILL INTACT AND PT. IS RESTING COMFORTABLY AT THIS TIME.
--- NOTE | 2022-01-16 15:55 | NUR ---
SVT PT WITH BREIF EPISODE OF SVT WITH HR 200'S NOT PRECIPITATED BY OTHER CARE. PT DEEP ETT SUCTIONED, THEN PT CONVERTED TO NSR LOW 100'S. DR TOVAR UPDATED. AMIODARONE BOLUS AND GTT AT 1 MG/HR INITIATED. PT THEN BACK INTO SVT APPROX 5 MINS AFTER AMIO BOLUS INFUSION COMPLETED. PT GIVEN 6 MG IV ADENOSINE. IMMEDIATE EFFECT NOTED, HR BACK TO 100'S NSR WITH MULTIPLE PVC'S. PT HYPOTENSIVE DURING SVT EPISODE, THEN BP RESOLVED. DR TOVAR CALLED TO CONSULT CARDIOLOGY AT THIS TIME. PT REMAINS ON AMIO GTT. WILL CONTINUE TO MONITOR.
[2022-01-16 16:51] LABS: Bun/Creatinine Ratio 65.1 (12.0-20.0); Calcium, Blood 8.1 mg/dL (8.5-10.1); Creatinine, Blood 1.49 mg/dL (0.40-1.00); Magnesium, Blood 2.3 mg/dL (1.6-2.4); Phosphorus, Blood 4.9 mg/dL (2.5-4.9); Potassium, Blood 4.7 mmol/L (3.5-5.5)
[2022-01-16 17:21] LABS: PO2 Arterial 89.9 mmHg (80-100)
[2022-01-16 17:25] LABS: PCO2 Arterial 62.7 mmHg (35-45)
--- NOTE | 2022-01-16 17:36 | NUR ---
SHIFT SUMMARY PT REMAINS INTUBATED AND SEDATED. VENT SETTINGS REMAINS AC 30, TV 400, PEEP 10, FIO2 60%. PT WITH BLOODY ETT SECRETIONS NOTED WITH SUCTION. CHEST TUBE TO RIGHT MID AXILLARY SITE REMAINS C/D/I WITH FREQUENT BUBBLING NOTED TO AIR LEAK CHAMBER. PT WITHOUT AIRLEAK FROM TUBING. PT ALSO WITH LARGE AMOUNT OF SEROUS/FROTHY OUTPUT FROM CHEST TUBE. DR TOVAR AWARE. PT REMAINS SEDATED WITH PROPOFOL AT 55 MCG/KG/MIN AND FENTANYL GTT AT 25 MCG/HR. PT DOES NOT WAKE UP OR FOLLOW COMMANDS. COUGH AND GAG PRESENT. PT WITH MULTIPLE EPISODES OF SVT THIS EVENING. PT CONVERTS OUT WITH DEEP ETT SUCTION THE LAST [address] WOOTEN AWARE. AMIODARONE GTT INFUSING AT 1 MG/MIN. SEE PREVIOUS NOTES FOR MORE INFO. VITAL SIGNS OTHERWISE STABLE THIS SHIFT. OGT IN PLACE WITH TF INFUSING AT GOAL RATE. RODRIGUEZ IN PLACE WITH GOOD URINE OUTPUT THIS SHIFT. SBW RESTRAINTS IN PLACE. PT DAUGHTER AT BEDSIDE FOR SHORT TIME THIS SHIFT. WILL CONTINUE TO MONITOR AND REPORT OFF TO ONCOMING RN.
--- NOTE | 2022-01-16 21:45 | NUR ---
ASSUMED CARE ASSUMED CARE AT 1900. PT INTUBATED AND SEDATED. AC/VC+ 30/400/10/60%. CHEST TUBE TO RIGHT MID AXILLARY SITE REMAINS C/D/I. INTERMITTENT BUBBLING NOTED IN AIR LEAK CHAMBER. NO AIR LEAK FROM TUBING. OUTPUT SEROUS/FROTHY. PROPOFOL GTT AND FENTANYL BIOMEDICAL ENGINEERING TECHNICIAN INFUSING. SEE FLOWSHEET FOR TITRATIONS. PT WITHDRAWS FROM NOXIOUS STIMULI, AND GRIMACES WITH ORAL CARE. MOVES EXTREMITIES SPONTANEOUSLY W/ ORAL CARE. EPISODES OF PT COUGHING AND BEING ASYNCHRONOUS W/ VENT. FENTANYL GIVEN. OGT IN PLACE W/ TF. RODRIGUEZ PATENT AND DRAINING TO GRAVITY.
--- NOTE | 2022-01-16 22:54 | NUR ---
CALL TO MD/SVT PT HAVING MULTIPLE RUNS OF SVT. PT SELF CONVERTED ONCE, VAGAL CONVERTED ONCE, AND CONVERTED WITH 6MG OF ADENOSINE ONCE. CALL MADE TO DR BLANKENSHIP REGARDING PLAN OF CARE R/T SVT EPISODES. ORDERS RECEIVED FOR ADENOSINE TO BE GIVEN NEEDED WITH 1ST DOSE 6MG, 2ND DOSE 6MG, 3RD DOSE 12MG UNTIL CONVERSION TO NSR AND CARDIZEM 30MG Q6.
--- NOTE | 2022-01-17 00:47 | NUR ---
ADENOSINE GIVEN PT WENT INTO SVT W/ RATE IN THE 200'S. ATTEMPTED TO VAGAL PT WITH ETT SUCTION WHICH WAS UNSUCCESSFUL. 5 ADENOSINE 6 MG GIVEN. 2355 PT CONVERTED TO NSR W/ PVC RATE 90'S.
[2022-01-17 04:51] LABS: Hematocrit 31.9 % (33.0-51.0); Hemoglobin 9.4 g/dL (11.5-16.0); Mean Corpuscular HGB Conc 29.5 g/dL (31.5-36.5); Mean Corpuscular Volume 85 fL (80-100); Mean Platelet Volume 12.3 fL (9.1-12.4); NRBC ABSOLUTE 0.03 K/mm3 (0.00-0.02); NRBC Auto 0.1 /100 WBC (0.0-0.2); Platelet Count 184 K/mm3 (150-400); RDW Coefficient Variation 18.8 % (11.7-14.2); RDW Standard Deviation 58.5 fL (35.1-46.3); Red Blood Cell Count 3.76 M/mm3 (3.80-5.20); White Blood Cell Count 29.97 K/mm3 (4.00-11.30)
[2022-01-17 05:06] LABS: International Normalized Ratio 0.96; Prothrombin Time Results 10.1 Sec (9.7-11.5)
[2022-01-17 05:13] LABS: Albumin, Blood 1.7 g/dL (3.4-5.0); Albumin/Globulin Ratio 0.4 (0.8-1.8); Bilirubin, Total 0.5 mg/dL (0.1-1.0); Bun/Creatinine Ratio 70.8 (12.0-20.0); Calcium, Blood 8.6 mg/dL (8.5-10.1); Creatinine, Blood 1.3 mg/dL (0.40-1.00); Globulin, Blood 4.6 g/dL (2.2-4.0); Magnesium, Blood 2.6 mg/dL (1.6-2.4); Phosphorus, Blood 4.2 mg/dL (2.5-4.9); Potassium, Blood 4.5 mmol/L (3.5-5.5); Total Protein, Blood 6.3 g/dL (6.4-8.2)
[2022-01-17 05:23] LABS: PCO2 Arterial 61.3 mmHg (35-45); PO2 Arterial 71.4 mmHg (80-100); pH Blood Arterial 7.25 (7.35-7.45)
[2022-01-17 05:45] LABS: BAND PERCENT MAN 2 % (0-8); BASOPHILS PERCENT MAN 0 % (0-2); EOSINOPHILS PERCENT MAN 0 % (0-6); LYMPHOCYTES ABSOLUTE MAN 0.89 K/mm3 (0.84-5.20); LYMPHOCYTES PERCENT MAN 3 % (21-46); METAMYELOCYTE ABSOLUTE MAN 0.29 K/mm3 (0.00-0.00); METAMYELOCYTE PERCENT MAN 1 % (0-0); MONOCYTES ABSOLUTE MAN 0.29 K/mm3 (0.16-1.47); MONOCYTES PERCENT MAN 1 % (4-13); MYELOCYTE ABSOLUTE MAN 0.89 K/mm3 (0.00-0.00); MYELOCYTE PERCENT MAN 3 % (0-0); NEUTROPHILS ABSOLUTE MAN 27.57 K/mm3 (1.96-9.15); SEG NEUTROPHILS PERCENT MAN 90 % (41-73); TOTAL CELLS COUNTED 100
--- NOTE | 2022-01-17 06:35 | NUR ---
SHIFT SUMMARY/ CALL TO PT REMAINS INTUBATED AND SEDATED. FIO2 NOW 50%, OTHER VENT SETTINGS UNCHANGED. PROPOFOL GTT AND FENTANYL CLINICAL LAB SPECIALIST INFUSING. AMIODARONE GTT @ 0.5MG/MIN. CHEST TUBE OUTPUT 530ML FOR SHIFT. BUBBLING HAS DECREASED T/O SHIFT W/ IMPROVED LUNG SOUNDS IN BASES. MULTIPLE SVT EPISODES T/O SHIFT, SEE PREVIOUS NOTES. ADENOSINE GIVEN X2, 6MG EACH DOSE. SR 80-90'S. PRN FENTANYL GIVEN TWICE WHEN PT WAS NOT TOLERATING VENT. VSS. OGT IN PLACE W/ TF AT GOAL RATE. RODRIGUEZ PATENT AND DRAINING TO GRAVITY. CALL MADE TO REGARDING DR COREY REGARDING PH [phone]. ORDER RECEIVED FOR 1 AMP SODIUM BICARB.
--- NOTE | 2022-01-17 07:40 | NUR ---
Assumed care of pt at 0715 Report revieved from LISET Perez and LISET Galaviz. Pt has had several runs of SVT during the previous shift, some self limiting, Adenoside required x2 for those runs that did not self limit. Chest tube in place, drainage decreasing, CXR done this am. Has OGT with Vitalsource HP at 20ml/hr (goal). Vent settings 30/400/10/30%, bloody ETT secretions but no longer asyncronous with the vent. [place] draining green urine. Skin largely intact with blanchable coccyx redness and scattered bruising. Has Bilat powerglide infusing Fentanyl at 25mcg/hr and Amio at 0.5. Propofol infusing at 60 and pt has required IVP of Fentanyl for restlessness. Cardiology consult to be called to Dr. Bruner today per Dr. Gr. RN to continue to monitor.
--- NOTE | 2022-01-17 19:36 | NUR ---
END OF SHIFT SUMMARY NEURO: SEDATED, PROPOFOL AT 60, FENTANYLY D/C'D. KRISTAL, BILAT SOFT WRIST RESTRAINTS CARDIAC: NO SVT THIS SHIFT. CARDIOLOGY CONSULT PLACED, DR. WILSON TO BEDSIDE. SBP CLIMBING OVER 200, PRN LOBETALOL AND HYDRALIZINE GIVEN, COOZAR RESTARTED, PO DILTIAZEM GIVEN. AMIO DRIP STOPPED, STARTED DILTIAZEM DRIP. TITRATED DILTIAZEM TO MAX WITH NO EFFECT ON BP. ORDERS RECEIVED TO D/C DILTIAZEM DRIP AND START LOBETALOL DRIP. LOBETALOL STARTED AT 1. EDEMA NOTED TO BILAT HANDS. RESP: VENT 30/400/5/40%. LUNGS COARSE AND DIMISHED AT BASES. ETT SECRETIONS BLOOD TINGED. CHEST TUBE TO RIGHT CHEST WITH AIR LEAK THIS AM. NO AIR LEAK TOWARD END OF SHIFT, ASSESSED TUBE, NO CHANGES TO LUNG SOUNDS, POSITION OR KINKS IN TUBE. ADVISED NOC RN OF RECENT CHANGES DESPITE NO CHANGE IN ASSESSMENT. NO CREPITUS NOTED. ETT ADVANCED [address]CM [address] TOVAR. GI: OGT WITH VITAL HP AT 20ML/HR (GOAL). BS HYPOACTIVE. NO BM THIS SHIFT. ABD OBESE AND SLIGHTLY DISTENDED. : RODRIGUEZ TO GRAVITY. LASIX 40MG IV GIVEN THIS AM PER BREAD PANNER. 4.5 LITERS CLEAR YELLOW URINE OUT. SKIN: BLANCHABLE REDNESS TO COCCYX. TURNED EVERY 2 HOURS. SCATTERED SCABBING ON HANDS. PSYCH: 2 DAUGHTERS AT BEDSIDE. UPDATED ON POC AND ALL QUESTIONS ANSWERED. PER DAUGHTERS, PT'S SISTER NYDIA CANNOT VISIT UNLESS ONE OF THEM ARE HERE. PASSED INFO ON TO NOC RN.
[2022-01-18 03:58] LABS: PCO2 Arterial 47.7 mmHg (35-45); PO2 Arterial 74.3 mmHg (80-100); pH Blood Arterial 7.41 (7.35-7.45)
[2022-01-18 04:00] LABS: Hematocrit 29.5 % (33.0-51.0); Hemoglobin 8.8 g/dL (11.5-16.0); Mean Corpuscular HGB Conc 29.8 g/dL (31.5-36.5); Mean Corpuscular Volume 84 fL (80-100); Mean Platelet Volume 12.1 fL (9.1-12.4); NRBC ABSOLUTE 0.02 K/mm3 (0.00-0.02); NRBC Auto 0.1 /100 WBC (0.0-0.2); Platelet Count 187 K/mm3 (150-400); RDW Coefficient Variation 18.7 % (11.7-14.2); RDW Standard Deviation 57.2 fL (35.1-46.3); Red Blood Cell Count 3.52 M/mm3 (3.80-5.20); White Blood Cell Count 22.01 K/mm3 (4.00-11.30)
[2022-01-18 05:00] LABS: Albumin, Blood 1.5 g/dL (3.4-5.0); Anion Gap 8 mmol/L (6-16); Blood Urea Nitrogen 98 mg/dL (8-24); CO2, Blood 27 mmol/L (21-32); Calcium, Blood 8.3 mg/dL (8.5-10.1); Chloride, Blood 109 mmol/L (98-108); Glomerular Filtration Rate 44 (60-); Glucose, Blood 290 mg/dL (70-99); Phosphorus, Blood 1.9 mg/dL (2.5-4.9); Sodium, Blood 144 mmol/L (136-145)
[2022-01-18 05:59] LABS: BAND PERCENT MAN 1 % (0-8); BASOPHILS PERCENT MAN 0 % (0-2); EOSINOPHILS PERCENT MAN 0 % (0-6); LYMPHOCYTES ABSOLUTE MAN 0.66 K/mm3 (0.84-5.20); LYMPHOCYTES PERCENT MAN 3 % (21-46); METAMYELOCYTE ABSOLUTE MAN 0.44 K/mm3 (0.00-0.00); METAMYELOCYTE PERCENT MAN 2 % (0-0); MONOCYTES PERCENT MAN 0 % (4-13); MYELOCYTE ABSOLUTE MAN 0.66 K/mm3 (0.00-0.00); MYELOCYTE PERCENT MAN 3 % (0-0); NEUTROPHILS ABSOLUTE MAN 20.24 K/mm3 (1.96-9.15); SEG NEUTROPHILS PERCENT MAN 91 % (41-73); TOTAL CELLS COUNTED 100
--- NOTE | 2022-01-18 06:48 | NUR ---
SHIFT SUMMERY PT CONTINUES ON A LABETALOL DRIP FOR HTN. SHE IS SEDATED ON PROPOFOL, ETT INTACT AND PATENT TO THE VENT. SHE IS SR ON THE TRIM SETTER HELPER AND BP IS MANAGED W/CURRENT MEDICATIONS AT THIS TIME. OXYGEN SAT >90%. CHEST TUBE INTACT W/NO AIR LEAK OR FLUCTUATIONS. RODRIGUEZ CATH INTACT PATENT AND DRAINING BELOW THE LEVEL OF THE BLADDER. LOW GRADE TEMP OVERNIGHT THAT RESOLVED W/OUT INTERVENTION. NO ACUTE CHANGES OVERNIGHT.
[2022-01-18 08:28] LABS: Vancomycin, Trough 19.1 ug/mL (5.0-10.0)
--- NOTE | 2022-01-18 13:34 | NUR ---
Spiritual care visit conducted. As I was standing at the RN desk, patient's dtr, Angie requests that I visit with her. Angie tells me about pt's medical history, their strong relationship and their [employer] ulises. Angie talks about some of the struggles they have faced in life and I highlight how they have overcome. Angie asks for prayer for her mother which I then gladly provided. Angie voices apprecaition for the visit and prayer and states that she is greatly encouraged by it. I will cotninue to remain available to patient and family.
--- NOTE | 2022-01-18 18:57 | NUR ---
END OF SHIFT SUMMARY NEURO: SEDATED ON PROPOFOL AT 40 MCG/KG/MIN. CARDIAC: SINUS RHYTHM, OCCASIONAL ECTOPY, BP 115-150. LABETALOL PO STARTED 1 HOUR PRIOR TO D/C'ING LABETALOL DRIP. PT TOLERATED WELL. SHANTAL DONE TODAY SHOWING NO VEGITATION PER WOOD BOATBUILDER. RESP: VENT 30/400/5/40%. O2 TITRATED PRN, PT O2 DEMAND INCREASES WHEN TURNED TO THE RIGHT. RIGHT SIDED CHEST TUBE WITH AIR LEAK. FLUSHED PRN NO AIR LEAK OR TIDALING PER DR. GRULLON. NURSE NOTIFY ORDERS PLACED. THICK MARTIN SOLID SECRETIONS FROM CHEST TUBE AFTER FLUSHING. ULTRASOUND DONE AT BESIDE BY DR GRULLON TODAY. NO LOCULATIONS VISUALIZED AT THIS TIME PER MD REPORT. GI: VITAL HP INFUSING AT 20ML/H (GOAL). STOPPED FROM [id number] FOR SHANTAL. 75ML SUCTIONED OUT AND DISCARDED PRIOR TO SHANTAL. BS HYPOACTIVE, NO BM THIS SHIFT. : RODRIGUEZ TO GRAVITY. 1300ML OUT CLEAR YELLOW URINE. SKIN: PURPLISH DISCOLORATION NOTED TO LEFT BUTTOCK. NEED FOR PICUTRES ENDORSED TO BACCARAT DEALER. TMAX 101.3, TYLENOL GIVEN WITH GOOD EFFECT IV: BILAT FOREARM POWERGLIDES, PROPOFOL INFUSING TO LEFT SIDE, RIGHT SIDE SALINE LOCKED. LEFT WITHDRAWS BLOOD WELL. BESIDE REPORT GIVEN TO ONCOMING RN.
--- NOTE | 2022-01-18 19:30 | NUR ---
ASSUMPTION OF CARE PT IS VENTILATED VIA ETT TUBE, BILATERAL BREATH SOUNDS PRESENT. OXYGEN SAT >90%. SHE IS SR ON THE MONITOR, BP WNL. SHE IS SEDATED ON PROPOFOL. RODRIGUEZ CATHETER INTACT PATENT AND DRAINING YELLOW URINE TO GRAVITY BELOW THE LEVEL OF THE BLADDER. SHE HAS A RIGHT CHEST TUBE W/SLIGHT BUBBLING DRAINING A SMALL AMOUNT OF SEROUS FLUID. NO S/S OF ACUTE DISTRESS NOTED AT TIME OF ASSESSMENT.
--- NOTE | 2022-01-18 23:09 | NUR ---
CHEST TUBE FLUSHED PER MD ORDER
[2022-01-19 06:25] LABS: Calcium, Blood 8.5 mg/dL (8.5-10.1); Creatinine, Blood 1.15 mg/dL (0.40-1.00); Hematocrit 32.1 % (33.0-51.0); Hemoglobin 9.3 g/dL (11.5-16.0); Magnesium, Blood 1.9 mg/dL (1.6-2.4); Mean Corpuscular HGB 24.2 pg (26.0-34.0); Mean Corpuscular Volume 84 fL (80-100); Mean Platelet Volume 11.8 fL (9.1-12.4); NRBC ABSOLUTE 0.03 K/mm3 (0.00-0.02); NRBC Auto 0.1 /100 WBC (0.0-0.2); Phosphorus, Blood 3.6 mg/dL (2.5-4.9); Platelet Count 183 K/mm3 (150-400); Potassium, Blood 4.7 mmol/L (3.5-5.5); RDW Coefficient Variation 18.9 % (11.7-14.2); RDW Standard Deviation 57.2 fL (35.1-46.3); Red Blood Cell Count 3.84 M/mm3 (3.80-5.20); White Blood Cell Count 22.31 K/mm3 (4.00-11.30)
--- NOTE | 2022-01-19 06:30 | NUR ---
SHIFT SUMMERY PT REMAINS INTUBATED VIA ETT. BILATERAL BREATH SOUNDS PRESENT. CHEST TUBE W/200 SEROUS OUTPUT OVERNIGHT, FLUSHED PER MD ORDER. SMALL BUBBLING NOTED IN CHAMBER. PT HAS BECOME MORE HYPERTENSIVE, DR WILSON AWARE AND HAS BEEN TO BEDSIDE. PT HAS BEEN SR ON THE MONITOR, AFEBRILE. SHE IS SEDATED ON PROPOFOL. RODRIGUEZ CATHETER INTACT AND DRAINING YELLOW URINE. TF INFUSING W/OUT DIFFICULTY. NO BM THIS SHIFT. NO ACUTE EVENTS OR CHANGES OVERNIGHT.
--- NOTE | 2022-01-19 15:19 | NUR ---
Spiritual care visit conducted. Pt is lying in bed and intubated. Pt's dtr, Angie, is bedside. Angie tells me about the positive progression forward although it is very slow. Angie remains very hopeful but again states that prayer is very meaningful and appreciated. We talk about the family dynamics, and what family members are the sources of the most help. Angie talks about how emotionally exhausting waiting for improvement is. We explore sources of managing the emotional weight of the situation. I normalized her experience and provided therapeutic listening, a calming presence and prayer. Angie responds well and shows signs of being encouraged in her ulises and refreshed emotionally. I will continue to remain avialable to patient and family.
--- NOTE | 2022-01-19 16:51 | NUR ---
SHIFT SUMMARY NO ACUTE CHANGES THIS SHIFT. PT REMAINS INTUBATED AND SEDATED. VENT SETTINGS UNCHANGED, AC 30, TV 400, PEEP 5, FIO2 40%. PT SEDATED WITH PROPOFOL AT 20 MCG/KG/MIN. PT WITH COUGH AND GAG WITH SUCTION. PT DOES NOT MOVE EXTREMITIES SPONTANEOUSLY OR TO NOXIOUS STIMULI. OGT REMAINS IN PLACE WITH TF INFUSING AT 35 ML/HR GOAL RATE. RODRIGUEZ REMAINS IN PLACE WITH CLEAR YELLOW URINE OUTPUT NOTED. SBW RESTRAINTS REMAIN IN PLACE. VITAL SIGNS STABLE. PT WITH RIGHT LATERAL CHEST TUBE C/D/I WITH FOAMY SEROUS DRAINAGE NOTED. AIR LEAK NOTED FROM CHEST TUBE. PT DAUGHTER AT BEDSIDE THIS AFTERNOON. WILL CONTINUE TO MONITOR AND REPORT OFF TO ONCOMING RN.
--- NOTE | 2022-01-19 19:35 | NUR ---
ASSUMPTION OF CARE PT REMAINS INTUBATED VIA ETT TUBE. BILATERAL BREATH SOUNDS PRESENT. OXYGEN SAT >95%. LEFT CHEST TUBE INTACT W/SOME BUBBLING NOTED IN THE CHAMBER, NOT NEW, DR GRULLON AWARE. TUBE IS DRAINING SEROUS FLUID. PT HAS TF INFUSING AT GOAL. SHE IS SEDATED ON PROPOFOL AT THIS TIME. RDORIGUEZ CATH DRAINING YELLOW URINE TO GRAVITY BELOW THE LEVEL OF THE BLADDER. SHE IS AFEBRILE AT THIS TIME. PT IS SR ON THE MONITOR. BP IS WNL. NO S/S OF ACUTE DISTRESS NOTED AT TIME OF ASSUMPTION OF CARE.
--- NOTE | 2022-01-20 06:35 | NUR ---
SHIFT SUMMERY NO ACUTE CHANGES OVERNIGHT.
[2022-01-20 06:36] LABS: BASOPHILS ABSOLUTE AUTO 0.03 K/mm3 (0.00-0.23); BASOPHILS PERCENT AUTO 0 % (0-2); EOSINOPHILS ABSOLUTE AUTO 0.02 K/mm3 (0.00-0.68); EOSINOPHILS PERCENT AUTO 0 % (0-6); Hematocrit 28.5 % (33.0-51.0); Hemoglobin 8.3 g/dL (11.5-16.0); IMMATURE GRAN ABSOLUTE AUTO 0.83 K/mm3 (0.00-0.10); IMMATURE GRAN PERCENT AUTO 5 % (0-1); LYMPHOCYTES ABSOLUTE AUTO 2.11 K/mm3 (0.84-5.20); LYMPHOCYTES PERCENT AUTO 13 % (21-46); MONOCYTES PERCENT AUTO 6 % (4-13); Mean Corpuscular HGB 24.8 pg (26.0-34.0); Mean Corpuscular HGB Conc 29.1 g/dL (31.5-36.5); Mean Corpuscular Volume 85 fL (80-100); NEUTROPHILS ABSOLUTE AUTO 12.32 K/mm3 (1.96-9.15); NEUTROPHILS PERCENT AUTO 76 % (41-73); NRBC ABSOLUTE 0.02 K/mm3 (0.00-0.02); NRBC Auto 0.1 /100 WBC (0.0-0.2); Platelet Count 128 K/mm3 (150-400); RDW Standard Deviation 58.7 fL (35.1-46.3); Red Blood Cell Count 3.35 M/mm3 (3.80-5.20); White Blood Cell Count 16.21 K/mm3 (4.00-11.30)
[2022-01-20 06:45] LABS: Bun/Creatinine Ratio 85.4 (12.0-20.0); Calcium, Blood 8.3 mg/dL (8.5-10.1); Creatinine, Blood 1.3 mg/dL (0.40-1.00); Potassium, Blood 4.8 mmol/L (3.5-5.5)
[2022-01-20 08:30] LABS: Vancomycin, Trough 16.1 ug/mL (5.0-10.0)
--- NOTE | 2022-01-20 16:41 | NUR ---
SHIFT SUMMARY NO ACUTE CHANGES THIS SHIFT. PT REMAINS INTUBATED WITH VENT SETTINGS AC 30, TV 400, PEEP 5, FI02 50%. PT WITH MINIMAL ETT AND ORAL SECRETIONS THIS SHIFT. PROPOFOL ON STANDBY SINCE THIS MORNING. PT DOES NOT WITHDRAW EXTREMITIES TO NOXIOUS STIMULI. PT WITH COUGH AND GAG PRESENT. PT DOES NOT ROUSE TO VERBAL OR NOXIOUS STIMULI. OGT REMAINS IN PLACE WITH TF INFUSING AT GOAL RATE. POWERGLIDE X2 REMAIN C/D/I, NS INFUSING TKO. RODRIGUEZ REMAINS IN PLACE WITH CLEAR YELLOW URINE OUTPUT NOTED. CHEST TUBE TO RIGHT LATERAL SITE REMAINS C/D/I WITH INTERMITENT AIR LEAK NOTED. PLEUAVAC DRY SUCTION CANISTER REPLACED THIS EVENING, TUBING CONNECTIONS RETAPED. VITAL SIGNS STABLE. SBW RESTRAINTS REMAIN IN PLACE. PT DAUGHTER AT BEDSIDE THIS AFTERNOON. WILL CONTINUE TO MONITOR AND REPORT OFF TO ONCOMING RN.
--- NOTE | 2022-01-20 19:15 | NUR ---
ASSUMED CARE OF PT @1900 FROM SHANTELL HUTCHINS. PT INTUBATED AND ON AC VC 30/400/5/40%. PT DOES NOT RESPOND TO VERBAL OR NOXIOUS STIMULI. GAG REFLEX DURING DEEP SUCTION. RR 30, SPO2 >92%, HR 70'S, SBP 120'S, PG ARIANA PATENT W/SALINE LOCK, PG JOSAFAT PATENT AND INFUSING TKO. CHEST TUBE R THORAX W/PLEUR-EVAC. RODRIGUEZ CATH DRAINING TO GRAVITY.
[2022-01-21 04:05] LABS: BASOPHILS ABSOLUTE AUTO 0.03 K/mm3 (0.00-0.23); BASOPHILS PERCENT AUTO 0 % (0-2); EOSINOPHILS ABSOLUTE AUTO 0.02 K/mm3 (0.00-0.68); EOSINOPHILS PERCENT AUTO 0 % (0-6); Hematocrit 28.1 % (33.0-51.0); Hemoglobin 8.1 g/dL (11.5-16.0); IMMATURE GRAN ABSOLUTE AUTO 0.44 K/mm3 (0.00-0.10); IMMATURE GRAN PERCENT AUTO 3 % (0-1); LYMPHOCYTES ABSOLUTE AUTO 2.04 K/mm3 (0.84-5.20); LYMPHOCYTES PERCENT AUTO 12 % (21-46); MONOCYTES ABSOLUTE AUTO 0.62 K/mm3 (0.16-1.47); MONOCYTES PERCENT AUTO 4 % (4-13); Mean Corpuscular HGB 24.8 pg (26.0-34.0); Mean Corpuscular HGB Conc 28.8 g/dL (31.5-36.5); Mean Corpuscular Volume 86 fL (80-100); NEUTROPHILS ABSOLUTE AUTO 13.97 K/mm3 (1.96-9.15); NEUTROPHILS PERCENT AUTO 82 % (41-73); NRBC ABSOLUTE 0.02 K/mm3 (0.00-0.02); NRBC Auto 0.1 /100 WBC (0.0-0.2); Platelet Count 115 K/mm3 (150-400); RDW Coefficient Variation 19.2 % (11.7-14.2); RDW Standard Deviation 59.1 fL (35.1-46.3); Red Blood Cell Count 3.27 M/mm3 (3.80-5.20); White Blood Cell Count 17.12 K/mm3 (4.00-11.30)
[2022-01-21 04:30] LABS: Albumin, Blood 1.7 g/dL (3.4-5.0); Anion Gap 3 mmol/L (6-16); Blood Urea Nitrogen 114 mg/dL (8-24); Bun/Creatinine Ratio 80.3 (12.0-20.0); CO2, Blood 31 mmol/L (21-32); Calcium, Blood 8.2 mg/dL (8.5-10.1); Chloride, Blood 115 mmol/L (98-108); Creatinine, Blood 1.42 mg/dL (0.40-1.00); Glomerular Filtration Rate 43 (60-); Glucose, Blood 400 mg/dL (70-99); Potassium, Blood 5.9 mmol/L (3.5-5.5); Sodium, Blood 149 mmol/L (136-145)
--- NOTE | 2022-01-21 06:28 | NUR ---
SUMMARY NEURO/PSYCH/MOBILITY: PT REMAINS OFF SEDATION. DOES NOT WITHDRAW FROM NOXIOUS STIMULI. DOES NOT RESPOND TO VERBAL STIMULI. NO MOVEMENT OF EXTREMETIES. GAG REFLEX DURING DEEP ORAL SUCTIONING. COUGHS WITH TURNING. PUPILS ARE LARGE W/RHYTHMIC OSCILLATIONS OF SIZE IN REACTION TO LIGHT. BSWR IN PLACE. RESP: INTUBATED. VENT SETTINGS REMAINED UNCHANGED AC VC 30/400/5/40%. RR 30-35, SPO2 >90%. LUNG SOUNDS DIMINISHED W/RIGHT SIDED WHEEZE. CHEST TUBE R MID AXILLARY. CONTINUOUS AIR LEAK NOTED. 80MLS CLOUDY YELLOW OUTPUT IN PLEUR-EVAC. SMALL AMOUNTS OF THIN WHITE SECRETIONS SUCTIONED FROM ETT. CARDIAC: CONTINUOUS CARDIAC MONITORING. HR 70-80'S, SBP 100-120'S, MAP >65, MODERATE EDEMA BILATERAL HANDS. GI: OG TF PIVOT 30MLS/HR GOAL RATE. NO BM THIS SHIFT. HYPOACTIVE BOWEL SOUNDS. : RODRIGUEZ CATH DRAINING YELLOW URINE TO GRAVITY. SEDIMENT NOTED. 800MLS OUT THIS SHIFT. SKIN: ASSESSMENT REMAINS UNCHANGED. MEPILEX CHANGED ON COCCYX. IV: PG ARIANA PATENT W/TKO, PG JOSAFAT PATENT W/SALINE LOCK.
--- NOTE | 2022-01-21 07:00 | NUR ---
ASSUME CARE: I have assumed care of this patient.
--- NOTE | 2022-01-21 10:40 | NUR ---
CHEST TUBE PLACEMENT: 23 romanian right lateral chest tube placed by Dr Junior with RN at bedside. Placed to -20mmHg suction with purulent serosanguinous fluid draining. Old right upper andterior chest tube discontinued.
[2022-01-21 16:38] LABS: Bun/Creatinine Ratio 74.7 (12.0-20.0); Calcium, Blood 8.2 mg/dL (8.5-10.1); Creatinine, Blood 1.54 mg/dL (0.40-1.00); Potassium, Blood 5.8 mmol/L (3.5-5.5)
--- NOTE | 2022-01-21 17:39 | NUR ---
SHIFT SUMMARY: NEURO: not sedated. does not open eyes. bilateral pupils with hippus reaction to light and roaving eye movements. flaccid extremities. +cough/+occulocephalic RESPIRATORY: large bore right lateral chest tube placed. dressing change once already due to serosanguinous drainage from insertion side. right anterior chest tube discontinued due to purulent drainage from insertion site. 250 mls out in total. CARDIAC: WNL GI/: long acting insulin increased this AM. free water flush volume changed to 200mls q4h. no BM; milk of mag given per OG tube. 1150mls out of hay after lasix. SKIN: no new breakdown. PSYCH/SOCIAL: daughter at bedside this AM and updated on pt status.
--- NOTE | 2022-01-21 17:59 | NUR ---
PROVIDER UPDATE: Dr Junior called and notified of pt's blood sugar. see new orders.
[2022-01-21 18:47] LABS: Glucose, Blood 583 mg/dL (70-99)
--- NOTE | 2022-01-21 21:35 | NUR ---
ASSUMED CARE OF PT @1900 FROM VARUN HUTCHINS. PT INTUBATED W/SEDATION ON SB. NOT RESPONDING TO VERBAL OR NOXIOUS STIMULI. AC VC 30/400/5/40%, RR 35, SPO2 >92%. CONTINOUS CARDIAC MONITORING. HR 70'S, SBP 100-120, MAP >65. PG ARIANA PATENT AND INFUSING TKO 10MLS/HR, PG JOSAFAT PATENT W/SALINE LOCK. OG TF PIVOT @30MLS/HR GR. R LATERAL CHEST TUBE SET TO -20 mm Hg PLEUR-EVAC. RODRIGUEZ CATH PATENT AND DRAINING TO GRAVITY. SCD'S AND BSWR IN PLACE.
--- NOTE | 2022-01-22 01:30 | NUR ---
CHEST TUBE BANDAGE CHANGE. PETROLEUM GAUZE APPLIED W/STERILE GLOVES. SPLIT GAUZE, 4X4 GAUZE AND TAPE FOR SECUREMENT.
[2022-01-22 03:33] LABS: BASOPHILS ABSOLUTE AUTO 0.04 K/mm3 (0.00-0.23); BASOPHILS PERCENT AUTO 0 % (0-2); EOSINOPHILS ABSOLUTE AUTO 0.05 K/mm3 (0.00-0.68); EOSINOPHILS PERCENT AUTO 0 % (0-6); Hematocrit 26.9 % (33.0-51.0); Hemoglobin 7.6 g/dL (11.5-16.0); IMMATURE GRAN ABSOLUTE AUTO 0.31 K/mm3 (0.00-0.10); IMMATURE GRAN PERCENT AUTO 2 % (0-1); LYMPHOCYTES ABSOLUTE AUTO 1.72 K/mm3 (0.84-5.20); LYMPHOCYTES PERCENT AUTO 11 % (21-46); MONOCYTES ABSOLUTE AUTO 0.44 K/mm3 (0.16-1.47); MONOCYTES PERCENT AUTO 3 % (4-13); Mean Corpuscular HGB 24.8 pg (26.0-34.0); Mean Corpuscular HGB Conc 28.3 g/dL (31.5-36.5); Mean Corpuscular Volume 88 fL (80-100); NEUTROPHILS ABSOLUTE AUTO 13.15 K/mm3 (1.96-9.15); NEUTROPHILS PERCENT AUTO 84 % (41-73); NRBC ABSOLUTE 0.03 K/mm3 (0.00-0.02); NRBC Auto 0.2 /100 WBC (0.0-0.2); Platelet Count 102 K/mm3 (150-400); RDW Coefficient Variation 19.4 % (11.7-14.2); Red Blood Cell Count 3.07 M/mm3 (3.80-5.20); White Blood Cell Count 15.71 K/mm3 (4.00-11.30)
[2022-01-22 03:49] LABS: Alanine Aminotransfer (ALT/SGP 19 U/L (12-78); Albumin, Blood 1.9 g/dL (3.4-5.0); Albumin/Globulin Ratio 0.5 (0.8-1.8); Alk Phos 24 U/L (50-136); Anion Gap 2 mmol/L (6-16); Aspartate Aminotrans (AST/SGOT 16 U/L (12-37); Bilirubin, Total 0.5 mg/dL (0.1-1.0); Blood Urea Nitrogen 134 mg/dL (8-24); Bun/Creatinine Ratio 74.9 (12.0-20.0); CO2, Blood 32 mmol/L (21-32); Chloride, Blood 117 mmol/L (98-108); Creatinine, Blood 1.79 mg/dL (0.40-1.00); Globulin, Blood 3.7 g/dL (2.2-4.0); Glomerular Filtration Rate 33 (60-); Glucose, Blood 428 mg/dL (70-99); Phosphorus, Blood 3.4 mg/dL (2.5-4.9); Potassium, Blood 5.1 mmol/L (3.5-5.5); Sodium, Blood 151 mmol/L (136-145); Total Protein, Blood 5.6 g/dL (6.4-8.2)
--- NOTE | 2022-01-22 07:00 | NUR ---
ASSUME CARE: I have assume care of this patient.
--- NOTE | 2022-01-22 18:38 | NUR ---
SHIFT SUMMARY: large bore chest tube replaced by Dr Junior this morning due to tube migration. NEURO: pt now beginning to open eyes spontaneously. Extremities withdrawal to noxious stimuli. +gag/+cough CARDIAC: significant run of vtach with a pulse shortly after chest tube was replaced. See rhythm strip. Pt self converted out and has been in NSR since. Morning dose of trandate held for soft pressures. RESPIRATORY: AC/VC 30/400/5/40%. Pt overbreathing vent some. Minimal in-line secretions. 150 mls of serosanguinous dranage from chest tube GI/: no BM; milk of magnesia given. [place] patent and draining. Fluids changed for hypernatremia.
--- NOTE | 2022-01-22 19:15 | NUR ---
ASSUMED CARE OF PT @1900 FROM VARUN HUTCHINS. PT INTUBATED/VENTILATED AC VC 30/400/5/40%, RR 30, SPO2 >92%. PT MINIMALLY MOVES HEAD TO NOXIOUS STIMULI BUT NOT EXTREMETIES. CONTINUOUS CARDIAC MONITORING. HR 60'S, SBP 110-120, MAP >65. PT ON COOLING BLANKET. OG TF PIVOT 30MLS/HR GR. IV 1/4 [place] @75ML/HR. PG JOSAFAT PATENT AND INFUSING. RODRIGUEZ CATH PATENT AND DRAINING TO GRAVITY. BSWR IN PLACE.
--- NOTE | 2022-01-22 22:17 | NUR ---
PT UPDATE. SUBCUTANEOUS EMPHYSEMA WORSENING AND IS UP INTO NECK/FACE AND DOWN INTO ARMS. MEASURED UPPER RIGHT ARM @40CM.
--- NOTE | 2022-01-23 00:40 | NUR ---
PHYSICIAN PHONE CALL: ADRIANA BOOTH RE WORSENING SUBCUTANEOUS EMPHYSEMA. PT NOW HAS IT UP HER NECK AND INTO HER FACE WELL DOWN BOTH UPPER EXTREMETIES INTO HANDS. PER DR. BOOTH; IF THE CHEST TUBE HAS NOT DISPLACED AND LENGTH EXPOSED HAS NOT CHANGED, LEAVE THE DRESSINGS IN PLACE AND THE SUBCUTANEOUS EMPHYSEMA IS COSMETIC AT THIS POINT. LENGTH OF CHEST TUBE EXPOSED HAS NOT CHANGED FROM BEGINNING OF SHIFT.
[2022-01-23 03:40] LABS: BASOPHILS ABSOLUTE AUTO 0.04 K/mm3 (0.00-0.23); BASOPHILS PERCENT AUTO 0 % (0-2); EOSINOPHILS ABSOLUTE AUTO 0.07 K/mm3 (0.00-0.68); EOSINOPHILS PERCENT AUTO 0 % (0-6); Hematocrit 27.5 % (33.0-51.0); Hemoglobin 7.8 g/dL (11.5-16.0); IMMATURE GRAN ABSOLUTE AUTO 0.33 K/mm3 (0.00-0.10); IMMATURE GRAN PERCENT AUTO 2 % (0-1); LYMPHOCYTES ABSOLUTE AUTO 1.14 K/mm3 (0.84-5.20); LYMPHOCYTES PERCENT AUTO 7 % (21-46); MONOCYTES PERCENT AUTO 2 % (4-13); Mean Corpuscular HGB 24.8 pg (26.0-34.0); Mean Corpuscular HGB Conc 28.4 g/dL (31.5-36.5); Mean Corpuscular Volume 87 fL (80-100); NEUTROPHILS ABSOLUTE AUTO 15.26 K/mm3 (1.96-9.15); NEUTROPHILS PERCENT AUTO 89 % (41-73); Platelet Count 94 K/mm3 (150-400); RDW Coefficient Variation 19.4 % (11.7-14.2); RDW Standard Deviation 61.2 fL (35.1-46.3); Red Blood Cell Count 3.15 M/mm3 (3.80-5.20); White Blood Cell Count 17.24 K/mm3 (4.00-11.30)
[2022-01-23 03:58] LABS: Anion Gap 3 mmol/L (6-16); Blood Urea Nitrogen 137 mg/dL (8-24); Bun/Creatinine Ratio 91.3 (12.0-20.0); CO2, Blood 31 mmol/L (21-32); Chloride, Blood 114 mmol/L (98-108); Glomerular Filtration Rate 41 (60-); Glucose, Blood 454 mg/dL (70-99); Phosphorus, Blood 3.4 mg/dL (2.5-4.9); Potassium, Blood 4.6 mmol/L (3.5-5.5); Sodium, Blood 148 mmol/L (136-145)
--- NOTE | 2022-01-23 06:18 | NUR ---
SUMMARY: NEURO/PSYCH/MOBILITY: PT STARTED OPENING EYES TO SOUND AND PRESSURE AND TRACKING FACES. NO PURPOSEFUL MOVEMENTS OF EXTREMETIES. WILL MOVE HEAD AWAY AND GRIMACE FOR ORAL CARE. TMAX OF 100.7. COOLING BLANKET REMOVED WHEN TEMP REACHED 98.5. HIPPUS PUPIL REACTION TO LIGHT VERY MINIMAL. BSWR IN PLACE. RESP: R LATERAL CHEST TUBE DRAINING TO PLEUR-EVAC. PT HAS SEVERE SUBCUTANEOUS EMPHYSEMA WORSENING AND SPREADING THROUGHOUT SHIFT UP INTO FACE AND DOWN BUE INTO HAND. BREAST TISSUE AND CHEST ALSO SEVERE SE. VENT SETTINGS REMAIN UNCHANGED 30/400/5/40%. STARTED OVER BREATHING VENT TOWARDS END OF SHIFT. PRN FENTANYL GIVEN AND PT RELAXED AND COMPLIED W/BREATHS. RR 30'S, SPO2 >92%. LUNGS REMAIN DIMINISHED THROUGHTOUT. CARDIAC: CONTINUOUS CARDIAC MONITORING. HR 60'S, BP STABLE, MAP >65. GI: SMALL LIQUID BM THIS SHIFT. OG TF PIVOT 30MLS/HR GOAL RATE W/200MLS H2O FLUSH Q4HRS. : RODRIGUEZ CATH PATENT AND DRAINING TO GRAVITY. 1100MLS OUTPUT THIS SHIFT. SKIN: ASSESSMENT REMAINS UNCHANGED. COCCYX MEPILEX CHANGED. IV: PG JOSAFAT PATENT AND INFUSING. POSITIONAL BUT DOES DRAW BACK BLOOD.
[2022-01-23 09:54] LABS: Vancomycin, Trough 19.4 ug/mL (5.0-10.0)
--- NOTE | 2022-01-23 17:45 | NUR ---
UPDATE: Message left for Dr Junior regarding hyperglycemia.
--- NOTE | 2022-01-23 18:43 | NUR ---
SHIFT SUMMARY: CT chest with contrast obtained today. NEURO: opening eyes to voice, withdrawals all extremities to noxious stimuli. Tylenol given once for fever. RESPIRATORY: chest tube dressing changed; bubbling with inspiration. 200mls of purulent serosanguinous output this shift. Crepitus noted from bilateral breasts up to cheeks. CARDIAC: NSR with occasional PVCs. Peripheral pulses 2+ GI/: milk of mag given again today. No BM. Bowel tones hyperactive. Hollingsworth draining clear yellow urine to gravity. SKIN: new skin tear to right lateral chest. see photo in chart.
[2022-01-23 20:02] LABS: Glucose, Blood 447 mg/dL (70-99)
--- NOTE | 2022-01-23 21:48 | NUR ---
ASSUMED CARE AT 1900 PT LAYING IN BED INTUBATED WITH VENT SETTINGS AC/VC+ 30/400/5/35%; RT LATERAL CHEST TUBE IN PLACE TO -20CM SUCTION; BUBBLING NOTED; DRESSING C/D/I; CREPITUS FELT AND SUBCUTANEOUS EMPHYSEMA FELT DOWN BOTH ARMS, ACROSS CHEST, AND UP INTO HER NECK. PT CRIMICES WITH PAINFUL STIMULI; PROFOUNDLY WEAK; WASN'T ABLE TO MOVE EXTREMTIES ON COMMAND BUT WAS ABLE TO TUR HEAD WHEN ASKED. TEMP 100.5; PRN TYLENOL GIVEN. HR 60'S. SBP 120'S. PIVOT INFUSING VIA OG AT 30ML/HR (GOAL) WITH 200ML WATER FLUSHES Q4HR. RODRIGUEZ IN PLACE AND DRAINING TO GRAVITY. 1/4NS INFUSING AT 75ML/HR. SEE SHIFT ASSESSMENT FOR FULL ASSESSMENT.
[2022-01-24 05:20] LABS: BASOPHILS ABSOLUTE AUTO 0.05 K/mm3 (0.00-0.23); BASOPHILS PERCENT AUTO 0 % (0-2); EOSINOPHILS ABSOLUTE AUTO 0.12 K/mm3 (0.00-0.68); EOSINOPHILS PERCENT AUTO 1 % (0-6); Hematocrit 25.7 % (33.0-51.0); Hemoglobin 7.5 g/dL (11.5-16.0); IMMATURE GRAN ABSOLUTE AUTO 0.41 K/mm3 (0.00-0.10); IMMATURE GRAN PERCENT AUTO 2 % (0-1); LYMPHOCYTES ABSOLUTE AUTO 1.51 K/mm3 (0.84-5.20); LYMPHOCYTES PERCENT AUTO 7 % (21-46); MONOCYTES ABSOLUTE AUTO 0.53 K/mm3 (0.16-1.47); MONOCYTES PERCENT AUTO 3 % (4-13); Mean Corpuscular HGB Conc 29.2 g/dL (31.5-36.5); Mean Corpuscular Volume 86 fL (80-100); NEUTROPHILS ABSOLUTE AUTO 18.86 K/mm3 (1.96-9.15); NEUTROPHILS PERCENT AUTO 88 % (41-73); Platelet Count 112 K/mm3 (150-400); RDW Coefficient Variation 19.2 % (11.7-14.2); RDW Standard Deviation 58.4 fL (35.1-46.3); White Blood Cell Count 21.48 K/mm3 (4.00-11.30)
[2022-01-24 05:33] LABS: Albumin, Blood 2.4 g/dL (3.4-5.0); Anion Gap 4 mmol/L (6-16); Blood Urea Nitrogen 121 mg/dL (8-24); Bun/Creatinine Ratio 85.8 (12.0-20.0); CO2, Blood 30 mmol/L (21-32); Calcium, Blood 8.3 mg/dL (8.5-10.1); Chloride, Blood 113 mmol/L (98-108); Creatinine, Blood 1.41 mg/dL (0.40-1.00); Glomerular Filtration Rate 44 (60-); Glucose, Blood 240 mg/dL (70-99); Phosphorus, Blood 3.7 mg/dL (2.5-4.9); Potassium, Blood 4.4 mmol/L (3.5-5.5); Sodium, Blood 147 mmol/L (136-145)
--- NOTE | 2022-01-24 06:26 | NUR ---
END OF SHIFT SUMMARY NO ACUTE CHANGES OVERNIGHT. PT CONT TO BE PROFOUNDLY WEAK AND TRACKS TO VERBAL STIMULI WHEN ASKED. MAX TEMP 100.5; TYLENOL GIVEN ONCE AND HELPFUL. CONT TO BE ON VENT WITH SETTINGS AC/VC+ 30/400/5/35%; RT LATERAL CHEST TUBE CONT TO BE IN PLACE, DRESSING C/D/I; 110ML OUTPUT FROM CHEST TUBE; NO IMPROVEMENT IN SUBCUTANEOUS EMPHYSEMA. HR 60-70'S. SBP 110-140. PIVOT INFUSING AT GOAL. RODRIGUEZ IN PLACE WITH 1550ML OUTPUT. 1/4NS INFUSING AT 75ML/HR. WILL REPORT TO AM RN WHEN AVAILABLE.
--- NOTE | 2022-01-24 07:22 | NUR ---
Assumed care of pt at 0715 Bedside report recieved from LISET Galaviz. Pt appears to be resting comfortably on no sedation. Bilat wrist restraints in place. Sinus Rhythm @ 73, BP 142/69. On vent 30/400/5/70%. Chest tube in place to right chest, subcutaneous empysema to right side up into neck and down into right upper extremity. OGT in place, Pivot running at 30 (goal) with 200ml H2O flushes in attempt to decrease Na+. Hollingsworth draining yellow urine with sediment. No BM on previous shift. Has rectal temp probe in place. TMax 100.5. Has IVF running at 75ml/hr into JOSAFAT powerglide. PICC planned today. RN to continue to monitor.
--- NOTE | 2022-01-24 17:14 | NUR ---
END OF SHIFT SUMMARY: NEURO: PT OPENS EYES TO VOICE. WILL TURN HEAD WHEN ASKED BUT DOES NOT YET MOVE HANDS/FEET. HEAD TURNING ON COMMAND IS INCONSISTENT WELL. NO SEDATION. CARDIAC: SINUS RHYTHM 60-70'S. BP 127/60. NO ECTOPY. RESP: VENT SETTINGS REMAIN UNCHANGED AC/VC 30/400/5/35%. WEANING UNSUCESSFUL THIS AM, RESP RATE INCREASED TO THE 40'S AND PT HAD INCREASED WORK OF BREATHING IMMEDIATELY AFTER BEING SWITCHED TO SPONTANEOUS SETTINGS BY DR. MOFFETT. PER MD, WILL NOT ATTEMPT TO WEAN FURTER TODAY, WILL TRY AGAIN TOMORROW. BREATH SOUNDS COARSE AT TIMES, CLEARS WITH SUCTIONING. CHEST TUBE DRAINING SEROUS FLUID WITH OCCASIONAL LARGE MARTIN THICK OUTPUT. AIR LEAK/TIDALING WITNESSED. DRESSING CHANGED TO OLD CT SITE, AIR LEAK PRESENT AND AUDIBLE. GI: BOWEL SOUNDS HYPERACTIVE. PT IS ON PIVOT TUBE FEED, RATE INCREASED TO 40 WITH 200ML H2O FLUSHES EVERY 4 HOURS. LARGE BM X1 LOOSE, BROWN. : RODRIGUEZ TO GRAVITY, DRAINING YELLOW URINE WITH SEDIMENT. 1000ML OUT. SKIN: LEFT BUTTOCK WITH PURPLISH DISCOLORATON AND SLOUGHING SKIN. PICTURE IN CHART. DRESSING REPLACED AFTER SOILED. SCATTERED BRUISING AND SCABS. ABRASION TO OLD CHEST TUBE SITE RIGHT CHEST, PICTURE IN CHART. NO CHANGES. IV: PICC PLACED TO RIGHT UPPER ARM. NEW CAPS PLACED. FLUSHES WELL. POWERGLIDE TO LEFT UPPER ARM, INFUSING AND FLUSHES WELL. 1/4 SALINE RUNNING AT 75ML/HR. DAUGHTER TO BEDSIDE, UPDATED ON POC AND CURRENT CONDITION. ALL QUESTIONS ANSWERED AND SUPPORT PROVIDED.
--- NOTE | 2022-01-24 19:00 | NUR ---
ASSUMED CARE OF PT, BEDSIDE REPORT RECEIVED. PT IS NOTED TO OPEN EYES AND TRACK IN ROOM, VERY FAINT MOVEMENT TO BILAT TOES, UNABLE TO DISCERN MOVEMENT TO FINGERS ON COMMAND HOWEVER PT DOES WITHDRAW ARMS FROM REPOSITIONING. CHEST TUBE AND PREVIOUS SITE REVIEWED WITH OFFGOING RN, TIDALING PRESENT WITH AIR LEAK NOTED, [address] TO PREVIOUS CHEST TUBE SITE, MARKED SUBCUTANEOUS EMPHYSEMA, MD AWARE. VENT SETTINGS AC/VC 30/350/5/35% SATS MAINTAINING LOW TO MID 90S, CURRENT RATE MID 30S UP TO 40, WILL MONITOR. PER OFFGOING RN, FENTANYL ADMINISTRATION WORKED WELL FOR RESPIRATORY RATE CONTROL.
--- NOTE | 2022-01-25 03:00 | NUR ---
PT LAST REPOSITIONING NEAR 0200 TO LEFT, ON REASSESSMENT AT THIS TIME, MINIMAL TO NO TIDALING IS NOTED TO CHEST TUBE, DRESSING TO PREVIOUS CHEST TUBE SITE IS NO LONGER INTACT, SUBCUTANEOUS EMPHYSEMA INCREASED, PT REPOSITIONED TO RIGHT, AND TIDALING RETURNS HOWEVER REMAINS POSITIONAL, IMAGING CONTACTED REGARDING AM CXR, TECH IS PRESENT ON UNIT, WILL OBTAIN CXR. PREVIOUS CHEST TUBE SITE CLEANSED, NO STING BARRIER APPLIED, CLEAR OCCLUSIVE DRESSING PLACED 3 SIDED DRESSING, VENTED TOWARD PT MIDLINE, MARDED AIR LEAK IS PRESENT WITH INCREASED SEROUS DRAINAGE AT THIS TIME.
--- NOTE | 2022-01-25 03:30 | NUR ---
CHEST TUBE/SUBCUTANEOUS EMPHYSEMA CXR OBTAINED, DISCUSSED WITH QUALITY CONTROL CLERK, CALL PLACED TO DR HUNT REGARDING POSITIONAL CHEST TUBE, INCREASING SUBCUTANEOUS EMPHYSEMA, AND INCREASED AIR LEAK AND DRAINAGE FROM PREVIOUS CHEST TUBE SITE. HE WILL REVIEW CXR. AT PREVIOUS CHEST TUBE SITE, SEROUS DRAINAGE HAS BREACHED PREVIOUS DRESSING, SOILED DRESSING REMOVED, SKIN PATTED DRY WITH STERILE 4X4 GAUZE, PETROLATUM GAUZE TO PUNCTURE, MAXZORB OVER PETROLATUM GAUZE, NO STING SKIN BARRIER TO SURROUNDING SKIN, LARGE CLEAR OPSITE X 2 TO SECURE MAXZORB WITH INFERIOR ASPECT OF DRESSING OPEN FOR 3 SIDED DRESSING.
[2022-01-25 05:57] LABS: BASOPHILS ABSOLUTE AUTO 0.03 K/mm3 (0.00-0.23); BASOPHILS PERCENT AUTO 0 % (0-2); EOSINOPHILS ABSOLUTE AUTO 0.14 K/mm3 (0.00-0.68); EOSINOPHILS PERCENT AUTO 1 % (0-6); Hematocrit 26.1 % (33.0-51.0); Hemoglobin 7.6 g/dL (11.5-16.0); IMMATURE GRAN ABSOLUTE AUTO 0.27 K/mm3 (0.00-0.10); IMMATURE GRAN PERCENT AUTO 1 % (0-1); LYMPHOCYTES ABSOLUTE AUTO 1.04 K/mm3 (0.84-5.20); LYMPHOCYTES PERCENT AUTO 5 % (21-46); MONOCYTES ABSOLUTE AUTO 0.63 K/mm3 (0.16-1.47); MONOCYTES PERCENT AUTO 3 % (4-13); Mean Corpuscular HGB 25.2 pg (26.0-34.0); Mean Corpuscular HGB Conc 29.1 g/dL (31.5-36.5); Mean Corpuscular Volume 87 fL (80-100); NEUTROPHILS ABSOLUTE AUTO 20.01 K/mm3 (1.96-9.15); NEUTROPHILS PERCENT AUTO 91 % (41-73); Platelet Count 117 K/mm3 (150-400); RDW Coefficient Variation 19.9 % (11.7-14.2); RDW Standard Deviation 59.8 fL (35.1-46.3); Red Blood Cell Count 3.01 M/mm3 (3.80-5.20); White Blood Cell Count 22.12 K/mm3 (4.00-11.30)
[2022-01-25 06:05] LABS: Albumin, Blood 2.1 g/dL (3.4-5.0); Anion Gap 6 mmol/L (6-16); Blood Urea Nitrogen 109 mg/dL (8-24); Bun/Creatinine Ratio 85.8 (12.0-20.0); CO2, Blood 28 mmol/L (21-32); Calcium, Blood 7.9 mg/dL (8.5-10.1); Chloride, Blood 111 mmol/L (98-108); Creatinine, Blood 1.27 mg/dL (0.40-1.00); Glomerular Filtration Rate 50 (60-); Glucose, Blood 392 mg/dL (70-99); Phosphorus, Blood 4.9 mg/dL (2.5-4.9); Potassium, Blood 4.5 mmol/L (3.5-5.5); Sodium, Blood 145 mmol/L (136-145)
--- NOTE | 2022-01-25 07:15 | NUR ---
PT CONTINUES TO BE MORE ALERT THE SHIFT PROGRESSES, SHE HAS BEEN NOTED TO PULL ARMS AGAINST REPOSITIONING OF UPPER EXTREMITIES BILAT HOWEVER STILL DOES NOT HAVE OBSERVABLE MOVEMENT TO FINGERS OF EITHER HAND, CONTINUES TO BE ABLE TO WEAKLY MOVE TOES HOWEVER NO LEG MOVEMENTS HAVE BEEN NOTED. SATS CONTINUE TO MAINTAIN WITHOUT CHANGES TO VENTILATOR SETTINGS, SUBCUTANEOUS EMPHYSEMA CONTINUES TO WORSEN, DR HUNT AWARE, CALL PLACED TO DR MOFFETT AT 0640 THIS AM REGARDING POSITIONAL CHEST TUBE AND INCREASING SUBCUTANEOUS EMPHYSEMA. OF THIS TIME, DRESSING IS MAINTAINING TO PREVIOUS CHEST TUBE SITE, CONTINUES WITH AIR LEAK. CHEST TUBE REMAINS POSITIONAL FOR TIDALING HOWEVER DOES CONTINUE TO HAVE SEROUS DRAINAGE, TOTAL OF 540 ML BETWEEN DAY SHIFT YESTERDAY AND THIS SHIFT. HEART RATE CONTINUES IN THE 60-70S THIS SHIFT, PRESSURES MAINTAINING, PULSES REMAIN STRONG. TOLERATING TUBE FEED AT GOAL, MINIMAL OUTPUT FROM RECTAL TUBE SINCE PLACEMENT THIS SHIFT. RODRIGUEZ REMAINS IN PLACE DRAINING YELLOW URINE TO GRAVITY WITH SEDIMENT NOTED, TOTAL OF 1350 URINE OUTPUT THIS SHIFT.
[2022-01-25 08:28] LABS: PCO2 Arterial 42.7 mmHg (35-45); PO2 Arterial 64.3 mmHg (80-100); pH Blood Arterial 7.42 (7.35-7.45)
--- NOTE | 2022-01-25 14:01 | NUR ---
Patient is lying in bed and minimally responsive. Pt's dtr Angie is bediside. She is tearful at times as she explains about how hard it is to see someone who is so strong struggling so hard to survive. She then shares about their lives together as Angie grew up as she spoke very highly of her mother and the kindness and compassion that she gave to others tirelessly. She talks about needing a miracle in some way because of the one step foward, two steps back, kind of rhythm of pt's recent medical history. We talk about meaning assigned to the struggle and the beauty and goodness that can be found in it all. I provide therapeutic listening and prayer. Pt responds well and shows signs of an elevated perspective and mood. Angie states that she is greatly encouraged by the visit and that it was perfect timing and content to lift her spirits.
--- NOTE | 2022-01-25 17:25 | NUR ---
SHIFT SUMMARY NO ACUTE CHANGES THIS SHIFT. PT REMAINS INTUBATED, VENT SETTINGS AC 24, TV 350, PEEP 5, FIO2 35%. PT WITH MINIMAL ETT SECRETIONS THIS SHIFT. PROPOFOL STARTED THIS AFTERNOON DUE TO RR CONSISTANTLY MID 40'S. PROPOFOL INFUSING AT 30 MCG/KG/MIN. PRIOR TO RESTARTING SEDATION PT OPENED LEFT EYE TO VOICE AND TRACKED, BUT DID NOT FOLLOW ANY COMMANDS. RIGHT LATERAL LARGE BORE CHEST TUBE REMAINS C/D/I. DRESSING CHANGED THIS MORNING BY DR MOFFETT. MINIMAL AIR LEAK NOTED OCCASIONALLY THIS SHIFT. PT WITH MINIMAL CT OUTPUT. OLD CHEST TUBE SITE WITH GAUZE DRESSING, TAPED 3 SIDES, C/D/I. SEVERE SUBCUTANEOUS EMPHYSEMA REMAINS UNCHANGED. OGT IN PLACE WITH TF INFUSING AT GOAL RATE. PICC TO ARIANA C/D/I, PG TO JOSAFAT C/D/I. RODRIGUEZ REMAINS IN PLACE WITH CLOUDY YELLOW OUTPUT NOTED. RECTAL TUBE IN PLACE WITH LIQUID BROWN OUTPUT NOTED. SBW RESTRAINTS IN PLACE. VITAL SIGNS STABLE. PT DAUGHTER AT BEDSIDE THIS AFTERNOON, UPDATED BY DR MOFFETT. WILL CONTINUE TO MONITOR AND REPORT OFF TO ONCOMING RN.
--- NOTE | 2022-01-25 19:00 | NUR ---
ASSUMED CARE OF PT, REPORT RECEIVED. PT IS RESTING QUIETLY AT THIS TIME, PROPOFOL IS NOW NOTED TO BE INFUSING, RATE 30 MCG/KG/MIN, PRESSURES SOFT BUT MAP MAINTAINING AT THIS TIME, WILL MONITOR. PER OFFGOING RN, PROPOFOL WAS STARTED DUE TO RESPIRATORY RATE MAINTAINING IN THE MID 40S, CURRENT RESP RATE NOTED MID TO UPPER 30S, PT IS NOTED TO INTERMITTENTLY OPEN LEFT EYE BRIEFLY, SHE DOES NOT TRACK AT THIS TIME AND DOES NOT FOLLOW COMMANDS, WILL MONITOR. SHE DOES GRIMACE WITH MOVEMENT OF RIGHT UPPER EXTREMITY FOR CHEST TUBE ASSESSMENT AND EVALUATION OF DRESSING OVER PREVIOUS CHEST TUBE SITE. CHEST TUBE AND PREVIOUS CHEST TUBE SITE DRESSING ARE REVIEWED WITH DR MOFFETT AT THIS TIME. SATS ARE MAINTAINING LOW 90S. SEVERE SUBCUTANEOUS EMPHYSEMA CONTINUES, WILL PLAN TO MAINTAIN AIR FLOW FROM SITE OF PREVIOUS CHEST TUBE.
[2022-01-26 06:46] LABS: BASOPHILS ABSOLUTE AUTO 0.03 K/mm3 (0.00-0.23); BASOPHILS PERCENT AUTO 0 % (0-2); EOSINOPHILS ABSOLUTE AUTO 0.12 K/mm3 (0.00-0.68); EOSINOPHILS PERCENT AUTO 1 % (0-6); Hemoglobin 7.1 g/dL (11.5-16.0); IMMATURE GRAN ABSOLUTE AUTO 0.17 K/mm3 (0.00-0.10); IMMATURE GRAN PERCENT AUTO 1 % (0-1); LYMPHOCYTES ABSOLUTE AUTO 0.92 K/mm3 (0.84-5.20); LYMPHOCYTES PERCENT AUTO 5 % (21-46); MONOCYTES ABSOLUTE AUTO 0.45 K/mm3 (0.16-1.47); MONOCYTES PERCENT AUTO 3 % (4-13); Mean Corpuscular HGB 25.3 pg (26.0-34.0); Mean Corpuscular HGB Conc 28.4 g/dL (31.5-36.5); Mean Corpuscular Volume 89 fL (80-100); NEUTROPHILS ABSOLUTE AUTO 15.84 K/mm3 (1.96-9.15); NEUTROPHILS PERCENT AUTO 90 % (41-73); Platelet Count 118 K/mm3 (150-400); RDW Coefficient Variation 20.7 % (11.7-14.2); RDW Standard Deviation 59.9 fL (35.1-46.3); Red Blood Cell Count 2.81 M/mm3 (3.80-5.20); White Blood Cell Count 17.53 K/mm3 (4.00-11.30)
[2022-01-26 07:01] LABS: Albumin, Blood 1.9 g/dL (3.4-5.0); Anion Gap 6 mmol/L (6-16); Blood Urea Nitrogen 115 mg/dL (8-24); Bun/Creatinine Ratio 78.2 (12.0-20.0); CO2, Blood 26 mmol/L (21-32); Calcium, Blood 8.3 mg/dL (8.5-10.1); Chloride, Blood 110 mmol/L (98-108); Creatinine, Blood 1.47 mg/dL (0.40-1.00); Glomerular Filtration Rate 42 (60-); Glucose, Blood 437 mg/dL (70-99); Phosphorus, Blood 5.7 mg/dL (2.5-4.9); Potassium, Blood 4.4 mmol/L (3.5-5.5); Sodium, Blood 142 mmol/L (136-145)
--- NOTE | 2022-01-26 07:23 | NUR ---
PT CONTINUES ON PROPOFOL THROUGHOUT SHIFT, DID TITRATE DOWN TO 15 MCG/KG/MIN AT ONE POINT IN ORDER TO MAINTAIN ADEQUATE BLOOD PRESSURE TO ALLOW FOR PAIN MEDICATION ADMINISTRATION PT HAS BEEN NOTED TO SHOW MARKED GRIMACING AND ATTEMPTS TO MOVE AWAY FROM STIMULI WHENEVER SKIN IS TOUCHED. PROPOFOL WAS TITRATED BACK UP TO 25 MCG/KG/MIN DURING DRESSING CHANGES AND PT WAS AWAKE AND BEGINNING TO SHAKE HER HEAD SIDE TO SIDE RAPIDLY. SHE IS RESTING QUIETLY OF THIS TIME WITH RELAXED EXPRESSION AND EXTREMITIES. LUNGS REMAIN COARSE AND DIM THROUGHOUT, SATS MAINTAINING WITH VENT SETTINGS AC/VC+ 24/350/5/35% RATE REMAINS 30-40 THROUGHOUT NOC. CONTINUES IN SINUS RHYTHM, RATE 60S, LABETOLOL DOSE HELD AT HS PER DR MOFFETT. TUBE FEED CONTINUES AT GOAL AND PT TOLERATES WELL, 350 ML LIQUID BROWN STOOL DRAINED VIA RECTAL TUBE, HYPERACTIVE BOWEL TONES CONTINUE. RODRIGUEZ CONTINUES DRAINING YELLOW URINE WITH SEDIMENT PRESENT. UPPER MIDAXILARRY PUNCTURE FROM PRIOR CHEST TUBE CONTINUES TO HAVE AIR LEAK WITH SEROUS DRAINAGE, 3 SIDED DRESSING CHANGED X 1 THIS SHIFT. CHEST TUBE CONTINUES TO HAVE VERY SLIGHT TIDALING INTERMITTENTLY, DR MOFFETT AWARE. BLOOD GLUCOSE LEVELS HAVE BEEN GREATER THAN 350 THIS SHIFT, DISCUSSED BOTH WITH DR HUNT, NEW ORDERS AT MIDNOC, NO NEW ORDERS AT 0600 THIS AM.
[2022-01-26 11:34] LABS: Vancomycin, Trough 18.5 ug/mL (5.0-10.0)
[2022-01-26 17:40] LABS: Albumin, Blood 1.9 g/dL (3.4-5.0); Anion Gap 6 mmol/L (6-16); Blood Urea Nitrogen 130 mg/dL (8-24); Bun/Creatinine Ratio 86.1 (12.0-20.0); CO2, Blood 25 mmol/L (21-32); Calcium, Blood 8.2 mg/dL (8.5-10.1); Chloride, Blood 111 mmol/L (98-108); Creatinine, Blood 1.51 mg/dL (0.40-1.00); Glomerular Filtration Rate 40 (60-); Glucose, Blood 386 mg/dL (70-99); Phosphorus, Blood 6.4 mg/dL (2.5-4.9); Potassium, Blood 4.8 mmol/L (3.5-5.5); Sodium, Blood 142 mmol/L (136-145)
--- NOTE | 2022-01-26 18:02 | NUR ---
Shift summary. Pt continues sedated and ventilated in bed. Responding slightly to verbal/noxious stimuli. No ventilator changes this shift. No acute events this shift, vs stable. See assessments for further details. Will continue to monitor and report off to nightshift RN.
[2022-01-27 05:09] LABS: BASOPHILS ABSOLUTE AUTO 0.02 K/mm3 (0.00-0.23); BASOPHILS PERCENT AUTO 0 % (0-2); EOSINOPHILS ABSOLUTE AUTO 0.14 K/mm3 (0.00-0.68); EOSINOPHILS PERCENT AUTO 1 % (0-6); Hematocrit 23.4 % (33.0-51.0); Hemoglobin 7.2 g/dL (11.5-16.0); IMMATURE GRAN ABSOLUTE AUTO 0.13 K/mm3 (0.00-0.10); IMMATURE GRAN PERCENT AUTO 1 % (0-1); LYMPHOCYTES ABSOLUTE AUTO 0.76 K/mm3 (0.84-5.20); LYMPHOCYTES PERCENT AUTO 5 % (21-46); MONOCYTES ABSOLUTE AUTO 0.36 K/mm3 (0.16-1.47); MONOCYTES PERCENT AUTO 3 % (4-13); Mean Corpuscular HGB 27.5 pg (26.0-34.0); Mean Corpuscular HGB Conc 30.8 g/dL (31.5-36.5); Mean Corpuscular Volume 89 fL (80-100); NEUTROPHILS ABSOLUTE AUTO 13.21 K/mm3 (1.96-9.15); NEUTROPHILS PERCENT AUTO 90 % (41-73); Platelet Count 130 K/mm3 (150-400); RDW Coefficient Variation 22.1 % (11.7-14.2); RDW Standard Deviation 60.5 fL (35.1-46.3); Red Blood Cell Count 2.62 M/mm3 (3.80-5.20); White Blood Cell Count 14.62 K/mm3 (4.00-11.30)
[2022-01-27 05:28] LABS: Bun/Creatinine Ratio 92.5 (12.0-20.0); Calcium, Blood 7.5 mg/dL (8.5-10.1); Creatinine, Blood 1.33 mg/dL (0.40-1.00); Potassium, Blood 4.8 mmol/L (3.5-5.5)
--- NOTE | 2022-01-27 05:39 | NUR ---
SHIFT SUMMARY: PT. REMAINED STABLE OVERNIGHT, NON-RESPONSIVE NEUROLOGICALLY EXCEPT TO SOME PAIN. BP HAS BEEN STABLE AND WNL, AND PT. HAS BEEN SINUS ERLIN TO NSR. PT. IS STILL ON VENTILATOR AT 24/350/35/5 AND HAS BEEN SATTING WELL OVERNIGHT, SHE IS STILL ON 25 OF PROP AND IS IN RESTRAINTS. PT. HAS A RECTAL TUBE THAT IS PATENT AND DRAINING WELL A URINARY CATHETER THAT IS PATENT AND DRAINING. TF IS GOING AT GOAL RATE. PT. IS RESTING AT THIS TIME.
--- NOTE | 2022-01-27 07:34 | NUR ---
Assumed care. Report received from nightsokft RN. Pt continues sedated and ventilated via ETT. Vent settings: AC/VC 24/350/5/35%. Propofol infusing at 25 mcg/kg/min. PICC in ARIANA, PG JOSAFAT, wnl. Hollingsworth catheter in place, rectal tube in place. VS stable, will continue to monitor.
--- NOTE | 2022-01-27 14:03 | NUR ---
CT. Patient transported to CT at approximately 1240, VS stable, CT completed. Pt back in room at approximately 1315
--- NOTE | 2022-01-27 18:18 | NUR ---
Shift summary. Pt continues sedated and ventilated. No changes to vent settings or sedation rate this shift. Pt taken to CT this afternoon, results read to Dr. Martinez over the phone. No new orders. PICC and PG in place. Hollingsworth catheter and rectal tube in place. VS stable, see assessments for further details. Will report off to nightshift RN.
--- NOTE | 2022-01-27 22:44 | NUR ---
ASSUMED CARE ASSUMED CARE AT 1900. PT INTUBATED AND SEDATED. AC/VC+ 24/350/5/35%. RR 38-42. PROPOFOL GTT INFUSING. SEE FLOWSHEET FOR TITRATIONS. MEDICATED W/ FENTANYL D/T INCREASED RESPIRATIONS AND FACIAL GRIMACING. LATERAL CHEST TUBE IN PLACE. CREPITUS PALPATED IN BILATERAL ARMS AND NECK. PERIORBITAL SWELLING TO RIGHT EYE. UNABLE TO VISUALIZE R EYE/PUPIL. SEE SHIFT ASSESSMENT FOR FULL ASSESSMENT. OGT W/ TF AT GOAL. RODRIGUEZ PATENT AND DRAINING TO GRAVITY. RECTAL TUBE IN PLACE.
--- NOTE | 2022-01-27 23:00 | NUR ---
CALL TO RT RT CALLED REGARDING ETT AT 27 CM AT LIP AND PREVIOUS CHARTED 28CM AT LIP. ALSO DISCUSSED ETT TUBE SECUREMENT DEVICE BEING TIGHT AND PRESSING ON UPPER LIP. ATTEMPTED TO LOOSEN SECUREMENT DEVICE BUT IT DID NOT IMPROVE PRESSURE. NO OTHER RECOMMENDATIONS FROM RT.
--- NOTE | 2022-01-28 01:43 | NUR ---
SUBCUTANEOUS EMPHYSEMA CALL MADE TO DR. HUNT D/T INCREASED SUBCUTANEOUS EMPHYSEMA AND CHEST SWELLING. ORDERS RECEIVED FOR CHEST XR 1V. CHEST XR COMPLETED AND CALL MADE TO FOLLOW UP WITH DR. HUNT. HE STATES THAT HE IS AWARE OF THE PATIENT AND THE SUBCUTANEOUS EMPHYSEMA. ACCORDING TO DR. HUNT XR SHOWS PNEUMOTHORAX IS IMPROVING, CHEST TUBE REMAINS IN CORRECT PLACE, AND SUBCUTANEOUS EMPHYSEMA IS VERY SEVERE. ASKED FOR GUIDANCE ON HOW TO CARE FOR THIS SUBCUTANEOUS EMPHYSEMA AND IMPROVE PATIENT CONDITION. NO ORDERS RECEIVED AND WAS ADVISED THIS WILL NOT RESOLVE WITHOUT SURGICAL INTERVENTION BY THORACIC SPECIALIST.
[2022-01-28 04:37] LABS: BASOPHILS ABSOLUTE AUTO 0.03 K/mm3 (0.00-0.23); BASOPHILS PERCENT AUTO 0 % (0-2); EOSINOPHILS PERCENT AUTO 1 % (0-6); Hematocrit 24.9 % (33.0-51.0); IMMATURE GRAN PERCENT AUTO 1 % (0-1); LYMPHOCYTES ABSOLUTE AUTO 0.81 K/mm3 (0.84-5.20); LYMPHOCYTES PERCENT AUTO 6 % (21-46); MONOCYTES ABSOLUTE AUTO 0.43 K/mm3 (0.16-1.47); MONOCYTES PERCENT AUTO 3 % (4-13); Mean Corpuscular HGB 25.5 pg (26.0-34.0); Mean Corpuscular HGB Conc 28.1 g/dL (31.5-36.5); Mean Corpuscular Volume 91 fL (80-100); NEUTROPHILS ABSOLUTE AUTO 11.42 K/mm3 (1.96-9.15); NEUTROPHILS PERCENT AUTO 89 % (41-73); Platelet Count 170 K/mm3 (150-400); RDW Coefficient Variation 23.2 % (11.7-14.2); RDW Standard Deviation 62.3 fL (35.1-46.3); Red Blood Cell Count 2.75 M/mm3 (3.80-5.20); White Blood Cell Count 12.89 K/mm3 (4.00-11.30)
[2022-01-28 05:15] LABS: Bun/Creatinine Ratio 91.5 (12.0-20.0); Creatinine, Blood 1.41 mg/dL (0.40-1.00); Potassium, Blood 4.9 mmol/L (3.5-5.5)
--- NOTE | 2022-01-28 06:05 | NUR ---
SHIFT SUMMARY PT REMAINS INTUBATED AND SEDATED. CREPITUS APPEARS TO BE INCREASING T/O NIGHT. SEE PREVIOUS NOTE. FENTANYL GIVEN TWICE THIS SHIFT. R LATERAL CHEST TUBE BUBBLING/TIDALING INTERMITTENTLY AT TIMES. MINIMAL OUTPUT. PREVIOUS CHEST TUBE SITE COVERED W/ NON-ADHERENT PAD TAPED ON THREE SIDES. LARGE AMOUNTS OF DRAINAGE. OGT W/ TF AT GOAL. RODRIGUEZ PATENT AND DRAINING TO GRAVITY. RECTAL TUBE IN PLACE.
--- NOTE | 2022-01-28 10:00 | NUR ---
PT INTUBATED AND SEDATED WITH PROPOFOL. PT WILL GRIMACE TO PAINFUL STIMULUS AND WITHDRAWL. PT HAS CHEST TUBE TO R LATERAL CW, LIGHT BROWN OUTPUT. PT HAS SUBCUTANEOUS EMPHYSEMA DOWN BOTH ARMS INTO HANDS, BILAT CHEST/BREASTS, HALF WAY DOWN ABD, BILAT NECK, AROUND BACK OF NECK, AND RIGHT EYE IS SWOLLEN SHUT. DR. LEDBETTER INTITIATED TRANSFER FOR VATS PROCEDURE EARLY THIS AM. [facility] IS ACCEPTING. WILL BE CHECKING WITH REACH FOR TRANSPORT. DAUGHTER UPDATED.
--- NOTE | 2022-01-28 13:00 | NUR ---
PT IS TO BE TRANSFERED TO [facility] BUT HELICOPTER IS UNABLE TO FLY.
--- NOTE | 2022-01-28 17:00 | NUR ---
PT LEAVING [facility] VIA AMBULANCE.
--- NOTE | 2022-01-28 19:21 | NUR ---
SUMMARY PT INTUBATED AND SEDATED WITH PROPOFOL. PT WAS TRANSFERED VIA [facility] TO [place] WHERE SHE WAS FLOWN VIA HELICOPTER TO [facility]. THIS RN AND A RT ACCOMPANIED PT DURING [facility] TRANSPORT. PT TOLERATED TRIP WELL AND NO ISSUES WITH CHEST TUBE DURING TRANSPORT. CHEST TUBE WAS TO SUCTION. VITALS STABLE PT LEAVES THIS RN'S CARE. DAUGHTER WAS UPDATED PRIOR TO PT BEING TRANSPORTED. REPORT WAS GIVEN TO SHAREPOINT TRAINER AT [facility] PRIOR TO LEAVING [facility].
== END 2022-01-28 17:05 | disposition short-term general hospital (02) | DRG 870 ==
LOC: ER 12:45 → ICUW 14:19
PROVIDERS: Family Medicine; Internal Medicine; Internal Medicine Critical Care Medicine; Internal Medicine Nephrology; Nurse Practitioner Acute Care; Student in an Organized Health Care Education/Training Program; ADMIT Student in an Organized Health Care Education/Training Program
PROC: 3E03329 Introduction of Other Anti-infective into Peripheral Vein, Percutaneous Approach (ICD-10-PCS; principal; 2022-01-12)
PROC: 02HV33Z Insertion of Infusion Device into Superior Vena Cava, Percutaneous Approach (ICD-10-PCS; 2022-01-12)
PROC: 5A09357 Assistance with Respiratory Ventilation, Less than 24 Consecutive Hours, Continuous Positive Airway Pressure (ICD-10-PCS; 2022-01-12)
PROC: 0BH18EZ Insertion of Endotracheal Airway into Trachea, Via Natural or Artificial Opening Endoscopic (ICD-10-PCS; 2022-01-13)
PROC: 3E033XZ Introduction of Vasopressor into Peripheral Vein, Percutaneous Approach (ICD-10-PCS; 2022-01-13)
PROC: 5A1955Z Respiratory Ventilation, Greater than 96 Consecutive Hours (ICD-10-PCS; 2022-01-13)
PROC: 0W9930Z Drainage of Right Pleural Cavity with Drainage Device, Percutaneous Approach (ICD-10-PCS; 2022-01-15)
PROC: 0W9900Z Drainage of Right Pleural Cavity with Drainage Device, Open Approach (ICD-10-PCS; 2022-01-21)
PROC: 0W9930Z Drainage of Right Pleural Cavity with Drainage Device, Percutaneous Approach (ICD-10-PCS; 2022-01-22)
DX: A41.02 Sepsis due to Methicillin resistant Staphylococcus aureus (principal); J15.212 Pneumonia due to Methicillin resistant Staphylococcus aureus; N17.0 Acute kidney failure with tubular necrosis; J96.02 Acute respiratory failure with hypercapnia; R65.21 Severe sepsis with septic shock; J86.9 Pyothorax without fistula; J96.21 Acute and chronic respiratory failure with hypoxia; I47.1 Supraventricular tachycardia; J44.1 Chronic obstructive pulmonary disease with (acute) exacerbation; Z68.41 Body mass index [BMI] 40.0-44.9, adult; J44.0 Chronic obstructive pulmonary disease with (acute) lower respiratory infection; Z20.822 Contact with and (suspected) exposure to COVID-19; Z28.82 Immunization not carried out because of caregiver refusal; Z78.1 Physical restraint status; J10.1 Influenza due to other identified influenza virus with other respiratory manifestations; F32.A Depression, unspecified; I12.9 Hypertensive chronic kidney disease with stage 1 through stage 4 chronic kidney disease, or unspecified chronic kidney disease; N18.9 Chronic kidney disease, unspecified; E11.22 Type 2 diabetes mellitus with diabetic chronic kidney disease; M06.9 Rheumatoid arthritis, unspecified; E66.01 Morbid (severe) obesity due to excess calories; M54.9 Dorsalgia, unspecified; G89.29 Other chronic pain; E11.40 Type 2 diabetes mellitus with diabetic neuropathy, unspecified; F17.210 Nicotine dependence, cigarettes, uncomplicated; M79.7 Fibromyalgia; Z90.49 Acquired absence of other specified parts of digestive tract; Z90.710 Acquired absence of both cervix and uterus; Z98.891 History of uterine scar from previous surgery; Z88.1 Allergy status to other antibiotic agents; Z88.2 Allergy status to sulfonamides; Z88.8 Allergy status to other drugs, medicaments and biological substances; Z79.899 Other long term (current) drug therapy
CPT/HCPCS: 0241U; 31500; 32551; 36415; 36569; 36600; 51702; 71045; 71250; 71260; 80048; 80053; 80069; 80202; 81001; 82040; 82248; 82330; 82570; 82803; 82945; 82947; 83605; 83615; 83735; 83880; 84100; 84145; 84156; 84157; 84484; 85025; 85027; 85610; 85730; 87040; 87070; 87075; 87077; 87081; 87086; 87147; 87186; 87205; 87449; 89051; 93005; 93010; 93306; 93312; 93325; 94002; 94003; 94640; 94644; 94660; 94664; 94760; 94762; 96365; 96375; 99285-25; A9270; C1751; C9113; J0153; J0282; J0360; J0456; J0610; J0696; J1650; J1815; J1940; J2060; J2543; J2704; J2920; J2930; J3010; J3370; J3475; J7030; J7050; J7060; J7070; J7120; J7131; P9047; Q9967

== ENCOUNTER 2022-02-22 11:06 | Inpatient (IN) | payer OTHER ==
[~2022-02-22] VITALS: Ht 167.6 cm; Wt 132.5 kg
[~2022-02-22 11:06] MED LIST changes: -METCAR500 PO; +Robaxin750 MG
[2022-02-22 14:59] LABS: BASOPHILS ABSOLUTE AUTO 0.01 K/mm3 (0.00-0.23); BASOPHILS PERCENT AUTO 0 % (0-2); EOSINOPHILS ABSOLUTE AUTO 0.11 K/mm3 (0.00-0.68); EOSINOPHILS PERCENT AUTO 2 % (0-6); IMMATURE GRAN ABSOLUTE AUTO 0.05 K/mm3 (0.00-0.10); IMMATURE GRAN PERCENT AUTO 1 % (0-1); LYMPHOCYTES ABSOLUTE AUTO 1.63 K/mm3 (0.84-5.20); LYMPHOCYTES PERCENT AUTO 23 % (21-46); MONOCYTES ABSOLUTE AUTO 0.62 K/mm3 (0.16-1.47); MONOCYTES PERCENT AUTO 9 % (4-13); Mean Corpuscular HGB 26.1 pg (26.0-34.0); Mean Corpuscular HGB Conc 29.2 g/dL (31.5-36.5); Mean Corpuscular Volume 90 fL (80-100); Mean Platelet Volume 10.6 fL (9.1-12.4); NEUTROPHILS ABSOLUTE AUTO 4.58 K/mm3 (1.96-9.15); NEUTROPHILS PERCENT AUTO 65 % (41-73); Platelet Count 209 K/mm3 (150-400); RDW Coefficient Variation 19.3 % (11.7-14.2); RDW Standard Deviation 64.4 fL (35.1-46.3); Red Blood Cell Count 2.68 M/mm3 (3.80-5.20)
[2022-02-22 15:16] LABS: Albumin, Blood 1.7 g/dL (3.4-5.0); Albumin/Globulin Ratio 0.4 (0.8-1.8); Bilirubin, Total 0.2 mg/dL (0.1-1.0); Bun/Creatinine Ratio 35.5 (12.0-20.0); Calcium, Blood 8.2 mg/dL (8.5-10.1); Creatinine, Blood 0.87 mg/dL (0.40-1.00); Globulin, Blood 4.6 g/dL (2.2-4.0); Potassium, Blood 5.1 mmol/L (3.5-5.5); Total Protein, Blood 6.3 g/dL (6.4-8.2)
--- NOTE | 2022-02-22 17:10 | NUR ---
SHIFT SUMMARY- O2 3L. WHEEZES HEARD BLL. APPETITE GOOD. PT NONCOMPLIANT WITH DIET. WILL CONTINUE TO EDUCATE. DAUGHTER AT BEDSIDE. CHEST TUBE BANDAGE INTACT. PICC LINE DRAW AND IS PATENT. A@O X4. CALL LIGHT IN REACH. WILL CONTINUE TO MONITOR.
[2022-02-22] MEDS ORDERED: CLON1 PO (20:01)
[2022-02-22] MEDS ORDERED: PANT40 PO (20:10)
--- NOTE | 2022-02-23 04:28 | NUR ---
SHIFT SUMMARY ADMITTED FOR POST OP SOB. FULL CODE. PLAN IS IV VANCO UNTIL 02/26/22. SHE THEN HOPES TO DC HOME TO FAMILY WHEN STABLE. DIRECT ADMIT TODAY FROM [facility]. SHE HAD A VATS PROCEDURE THERE. SHE HAS NOT GOTTEN OUT OF BED HERE. PICC LINE IN RUE. ANTIB RX ARE SCHEDULED. SHE DISPLAYS GREAT ANXIETY THROUGHOUT SHIFT ABOUT ALL ASPECTS OF HER CARE. HOME ANXIETY MEDICATION ORDERED ONE TIME ONLY AND GIVEN. I HAVE COMPLETED HER MED RECONCILLIATION FOR HOME MEDS. SHE IS ON 3 LPM O2 DAY AND NIGHT, HER BASELINE IS RA. PUREWICK CATHETER IN PLACE, SHE IS INCONTINENT.
[2022-02-23 06:19] LABS: Hematocrit 23.3 % (33.0-51.0); Hemoglobin 6.7 g/dL (11.5-16.0); Mean Corpuscular HGB 25.7 pg (26.0-34.0); Mean Corpuscular HGB Conc 28.8 g/dL (31.5-36.5); Mean Corpuscular Volume 89 fL (80-100); Mean Platelet Volume 11.1 fL (9.1-12.4); Platelet Count 214 K/mm3 (150-400); RDW Coefficient Variation 19.2 % (11.7-14.2); RDW Standard Deviation 62.1 fL (35.1-46.3); Red Blood Cell Count 2.61 M/mm3 (3.80-5.20); White Blood Cell Count 6.76 K/mm3 (4.00-11.30)
[2022-02-23 06:49] LABS: Albumin, Blood 1.5 g/dL (3.4-5.0); Albumin/Globulin Ratio 0.3 (0.8-1.8); Bilirubin, Total 0.3 mg/dL (0.1-1.0); Calcium, Blood 8.5 mg/dL (8.5-10.1); Creatinine, Blood 0.83 mg/dL (0.40-1.00); Globulin, Blood 4.5 g/dL (2.2-4.0)
[2022-02-23 11:34] LABS: Percent Saturation 10.5 % (15.0-50.0)
--- NOTE | 2022-02-23 18:31 | NUR ---
SHIFT SUMMARY: PATIENT A&OX3, FORGETFUL AND SOME CONFUSION AT TIMES. PATIENT WAS ABLE TO PARTICIPATE c PT MOBILITY TODAY. RECOMMENDED PATIENT TO BE IN LIFT ROOM. WEIGH BOSS, SATHYA BARAJAS WAS NOTIFIED C THIS REQUEST. PATIENT REPORTS CONSTANT PAIN TO R SIDE UNDER ARMPIT FROM THE CHEST TUBE WAS REMOVED PRIOR TO ADMISSION. PATIENT WAS MEDICATED c ULTRAM BEGINNING OF SHIFT. REPORTS DID NOT HAVE ANY RELIEF. THIS RN COMMUINCATED c DR. ROSALES THIS AM DURING PATIENT ROUNDING. DR. ROSALES CHANGED PAIN MEDICATION REGIMEN TO NORCO Q6 PRN. PATIENT RECEIVED 2 DOSE OF NORCO THIS SHIFT. PATIENT REPORTS HAVING GOOD RELIEF OF NORCO. PATIENT HAS OPEN SORE TO COCCYX ABOUT A SIZE OF A QUARTER. MIPELEX DRESSING APPLIED TO AFFECTED SITE. PATIENT HAS BEEN REPOSITIONED Q2 HRS OR SOONER T/O SHIFT. PATIENT HAS PUREWICK FOR INCONTINENCE VOID. VITAL SIGNS REVIEWED. PICC LINE TO JOSAFAT SALINE LOCKED. CALL LIGHT IN REACH. AT AROUND 1730, UPON REPOSITIONING PATIENT IN BED PRIVATE DUTY RN AND THIS RN FOUND 3 ORANGE PILLS IN PATIENT BED. THIS RN QUESTION PATIENT IF SHE IS TAKING MEDICATIONS WITHOUT LETTING THIS RN KNOW. PATIENT DENIED, BUT POINTED OUT THAT SHE TOOK IT OUT FROM HER PURSE. THIS RN ASK PATIENT PERMISSION TO CHECK PATIENT PURSE. PATIENT AGREED. THIS RN FOUND 1 BOTTLE OF MEDS c LABEL OF KLONOPIN BUT THERE ARE TWO DIFFERENT KINDS OF MEDICATION INSIDE THE BOTTLE. THIS RN INFORMED PATIENT HER MEDICATION NEEDS TO BE LOCKED ON HER MEDS DRAWER AND WILL RETURN UPON DISCHARGE FOR HER OWN SAFETY. PATIENT AGREABLE TO THIS DECISION. WEIGH BOSS, SATHYA BARAJAS WAS NOTIFIED c THIS EVENT.
--- NOTE | 2022-02-23 21:35 | NUR ---
CALLED HOSPITALIST PT INFORMED ME SHE IS NOT GETTING HER HOME EVENING MEDS. I CALLED THE HOSPITALIST. NEW ORDERS IN EMAR.
--- NOTE | 2022-02-24 04:30 | NUR ---
SHIFT SUMMARY ADMITTED FROM [facility] FOLLOWING VATS PROCEDURE. FULL CODE. DROPLET PRECAUTIONS FOR MRSA IN BODY FLUID/SPUTUM. PICC LINE IN RUE. AC CHEMSTICKS. SHE IS BEDRIDDEN. ULCER ON SACCRUM. SHE IS A&O X3, BUT FORGETFUL. CALLS FREQUENTLY. PUREWICK IN PLACE FOR INCONTINENCE. SHE IS ON 3 LPM O2 HERE, RA IS BASELINE. HX: WAS IN ICU HERE FOR FLU A+ W/PNEUMONIA, INTUBATED. 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 DAILY DRESSING CHANGES ON RIGHT SIDE VATS INSERTION POINTS. ADA DIET. HX: MICROCYTIC ANEMIA, MONITORING IRON LABS.
[2022-02-24 05:56] LABS: BASOPHILS ABSOLUTE AUTO 0.03 K/mm3 (0.00-0.23); BASOPHILS PERCENT AUTO 0 % (0-2); EOSINOPHILS ABSOLUTE AUTO 0.16 K/mm3 (0.00-0.68); EOSINOPHILS PERCENT AUTO 2 % (0-6); Hematocrit 23.3 % (33.0-51.0); Hemoglobin 6.8 g/dL (11.5-16.0); IMMATURE GRAN ABSOLUTE AUTO 0.06 K/mm3 (0.00-0.10); IMMATURE GRAN PERCENT AUTO 1 % (0-1); LYMPHOCYTES ABSOLUTE AUTO 1.62 K/mm3 (0.84-5.20); LYMPHOCYTES PERCENT AUTO 22 % (21-46); MONOCYTES ABSOLUTE AUTO 0.69 K/mm3 (0.16-1.47); MONOCYTES PERCENT AUTO 9 % (4-13); Mean Corpuscular HGB 25.7 pg (26.0-34.0); Mean Corpuscular HGB Conc 29.2 g/dL (31.5-36.5); Mean Corpuscular Volume 88 fL (80-100); Mean Platelet Volume 11.2 fL (9.1-12.4); NEUTROPHILS ABSOLUTE AUTO 4.98 K/mm3 (1.96-9.15); NEUTROPHILS PERCENT AUTO 66 % (41-73); Platelet Count 212 K/mm3 (150-400); RDW Standard Deviation 61.1 fL (35.1-46.3); Red Blood Cell Count 2.65 M/mm3 (3.80-5.20); White Blood Cell Count 7.54 K/mm3 (4.00-11.30)
[2022-02-24 06:33] LABS: Albumin, Blood 1.6 g/dL (3.4-5.0); Albumin/Globulin Ratio 0.3 (0.8-1.8); Bilirubin, Total 0.3 mg/dL (0.1-1.0); Bun/Creatinine Ratio 32.8 (12.0-20.0); Calcium, Blood 8.3 mg/dL (8.5-10.1); Creatinine, Blood 0.95 mg/dL (0.40-1.00); Globulin, Blood 4.6 g/dL (2.2-4.0); Potassium, Blood 5.2 mmol/L (3.5-5.5); Total Protein, Blood 6.2 g/dL (6.4-8.2)
--- NOTE | 2022-02-24 08:10 | NUR ---
Patient Education. Under the guidance of Mitra precepting RN, provided education to patient regarding sugary sodas increasing blood sugar levels. Offered patient water, as well as 50/50 soda with bubbly water. Patient declined and requested to continue drinking soda.
--- NOTE | 2022-02-24 09:59 | NUR ---
VENTURA Rubio FROM DR. ROSALES FOR FERRLECIT 125 MG DAILY FOR 5 DAYS. ORDER UPDATED.
--- NOTE | 2022-02-24 11:01 | NUR ---
Patient consent statement. Patient consented this 2nd year [facility] nursing home aide to participate in her care today, 02/24/2022. CT
--- NOTE | 2022-02-24 17:19 | NUR ---
Shift Summary A/Ox3. Calling for needs a lot. C/O discomforts and needing frequent repositionings. Refuses to stay on one side or the other because it's "lumpy". Agreeable to floating hips. Low motivation and self limiting behaviors. Patient frequently asking staff for total assist with leg mobility in bed. Family has been bringing in Sprite and milkshakes despite education given by student nurse RE ADA diet and diabetes dx. Purewick in place. Worked with PT/OT today. Medicated x 1 for 9/10 lower back pain with good effect. Dressings to R rib and coccyx changed.
--- NOTE | 2022-02-25 04:23 | NUR ---
SHIFT SUMMARY ADMITTED FROM [facility] FOLLOWING VATS PROCEDURE. FULL CODE. PLAN IS FOR DC TO FACILITY. IV ANTIB RX UNTIL 02/26. DAILY DRESSING CHANGE TO RIGHT SIDE SURGICAL INCISIONS. PICC LINE IN RUE. AC CBG'S. ADA DIET. INCONTINENT, PUREWICK IN PLACE. IRON DEFICIENT ANEMIA, IV IRON IS SCHEDULED. PAIN AND ANXIETY MEDICATION GIVEN THIS SHIFT. A&O X3, FORGETFUL AND ANXIOUS. SHE IS BEDRIDDEN. 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
[2022-02-25 15:48] LABS: Vancomycin, Trough 23.4 ug/mL (5.0-10.0)
--- NOTE | 2022-02-25 18:48 | NUR ---
Shift Summary A/O, worked with PT with unsuccessful attempted to stand. Cooperative with lying side to side today, patient states this was helpful with relieving pressure off buttock/sore. Dressings to buttock and R rib changed, photos taken and placed in chart. Patient excited about discharging home tomorrow.
--- NOTE | 2022-02-26 03:10 | NUR ---
Patient resting in bed, instructed to make needs known while nurses were present due to continually having to gown due to isolation precautions, patient became very upset, patient called for nurses 4 times in a 15 minute period, patient re educated nurses could not continually come into room just to move a pillow or blanket that patient was completely able to re orient on her own, patient again became upset, nurse emphasized patient wanted to go home today and needed to be able to do these things on her own.
[2022-02-26 06:22] LABS: Vancomycin, Random 17.1 ug/mL
--- NOTE | 2022-02-26 18:26 | NUR ---
SHIFT SUMMARY: PT ALERT AND ORIENTED X4. PT MOVED FROM 334 TO 335 DUE TO NEEDING A ROOM WITH A LIFT. PT HAS NEW AIRBED WHICH SHE STATED HAS HELPED HER TREMENDOUSLY. PT HAS PRESSURE ULCER ON COCCYX THAT IS COVERED BY MEPILEX. TURNING Q2. PT REFUSED TO WORK WITH PHYSICAL THERAPY THIS MORNING. TALKED TO PT ABOUT WHY SHE WAS REFUSING AND SHE STATED SHE WOULD START WORKING WITH THEM STARTING TOMORROW. SHE DID NOT REALIZE THEY COULD DO EXERCISES IN THE BED. PT REMAINS ON 2L. PT C/O PAIN TWICE THIS SHIFT IN HER LOWER BACK AND RIGHT SIDE WHERE HER CHEST TUBE WAS LOCATED. DR. SIDDIQUI STATED TO D/C VANCOMYCIN THE PT IS TO HAVE CHEST CT TOMORROW FOR FOLLOW-UP OF PNEUMONIA. PUREWICK IN PLACE. CALL LIGHT IN REACH. BED IN LOWEST POSITION. WILL CONTINUE TO MONITOR.
--- NOTE | 2022-02-27 05:41 | NUR ---
SHIFT SUMMARY NOC PT A/O X 4. PT IS TOLERATING NEW AIRBED WELL. HAD ONLY ONE C/O LOWER BACK PN DURING SHIFT. PT STILL ON 2L/NC PRN. PT HAS F/U CHEST CT SCAN SET FOR 02/27/22 FOR PNA. PT HAS PUREWICK IN PLACE DRAINING YELLOW URINE TO SUCTION. PT ATTEMPTED TO HAVE BM BUT WAS UNSUCCESSFUL. PT SLEPT FOR MOST OF SHIFT. PT IS CURRENTLY RESTING IN BED WITH BED IN LOWEST POSITION, AND CALL LIGHT WITHIN REACH. TM.
[2022-02-27 09:42] LABS: BASOPHILS ABSOLUTE AUTO 0.02 K/mm3 (0.00-0.23); BASOPHILS PERCENT AUTO 0 % (0-2); EOSINOPHILS ABSOLUTE AUTO 0.08 K/mm3 (0.00-0.68); EOSINOPHILS PERCENT AUTO 1 % (0-6); Hematocrit 24.5 % (33.0-51.0); Hemoglobin 7.2 g/dL (11.5-16.0); IMMATURE GRAN ABSOLUTE AUTO 0.09 K/mm3 (0.00-0.10); IMMATURE GRAN PERCENT AUTO 1 % (0-1); LYMPHOCYTES PERCENT AUTO 20 % (21-46); MONOCYTES ABSOLUTE AUTO 0.56 K/mm3 (0.16-1.47); MONOCYTES PERCENT AUTO 8 % (4-13); Mean Corpuscular HGB Conc 29.4 g/dL (31.5-36.5); Mean Corpuscular Volume 88 fL (80-100); Mean Platelet Volume 10.6 fL (9.1-12.4); NEUTROPHILS PERCENT AUTO 69 % (41-73); Platelet Count 205 K/mm3 (150-400); RDW Coefficient Variation 18.8 % (11.7-14.2); RDW Standard Deviation 61.3 fL (35.1-46.3); Red Blood Cell Count 2.77 M/mm3 (3.80-5.20); White Blood Cell Count 7.35 K/mm3 (4.00-11.30)
--- NOTE | 2022-02-27 18:15 | NUR ---
SHIFT SUMMARY: PT ALERT AND ORIENTED X4. PT HAD CT RIGHT AT SHIFT CHANGE THIS AM FOR PNEUMONIA FOLLOW-UP. PT PLACED ON PO ABX. PT C/O PAIN TWICE THIS SHIFT IN INCISION SITES ON R.SIDE WHERE CHEST TUBES WERE LOCATED. PT HAS NOT HAD A BM SINCE 02/21. GAVE SCHEDULED BOWEL MEDS THIS SHIFT WELL OFFERED PRUNE JUICE WITH BUTTER. PT REFUSED PRUNE JUICE AND STATED SHE WAS GOING TO CONTINUE TRYING. PT WORKED WITH PHYSICAL THERAPY TODAY DOING EXERCISES IN BED. PHYSICAL THERAPY WOULD LIKE TO START GETTING PT UP TO A RECLINER STARTING TOMORROW. RECLINER PLACED IN PT ROOM. MEPILEX CHANGED ON SACRUM FOR PRESSURE ULCER. ROTATING PT Q2 OFF OF BOTTOM. PICC IN R.UPPER ARM FLUSHING WELL BUT WILL NOT DRAW. CALL LIGHT IN REACH. BED IN LOWEST POSITION. WILL CONTINUE TO MONITOR.
--- NOTE | 2022-02-28 05:16 | NUR ---
SUMMARY: NO ACUTE EVENTS OVERNIGHT. PATIENT AOX4. VSS. PUREWIC IN PLACE PATIENT CANNOT AMBULATE OUT OF BED YET. PLAN TO WORK WITH PT TODAY TO USE LIFT AND SIT IN RECLINER. PAIN MEDS GIVEN PER EMAR. PATIENT HAS A PRODUCTIVE COUGH. TURNED IN BED Q2HR. ORAL ANTIBIOTICS GIVEN. NASAL CANNULA 2L O2. CALL LIGHT IN REACH.
[2022-02-28 05:53] LABS: Hematocrit 25.2 % (33.0-51.0); Hemoglobin 7.2 g/dL (11.5-16.0)
[2022-02-28 07:00] LABS: Bun/Creatinine Ratio 25.8 (12.0-20.0); Calcium, Blood 8.7 mg/dL (8.5-10.1); Creatinine, Blood 0.89 mg/dL (0.40-1.00); Potassium, Blood 4.7 mmol/L (3.5-5.5)
--- NOTE | 2022-02-28 08:00 | NUR ---
pt laying in bed, awake a/ox3, speaks in a whisper, follows commands, a/ox3, cooperative with care, lungs are clear in [place] dim in bases, resp even and unlabored, currently on 3 liters 02 via n/c, has a wet harsh productive cough, hrr, no edema noted, ppp+2, cap refill <3sec, vs stable, afebrile, iv site is picc line to torito, site is clear and patent, btx4, had a large bm last night, purwik in place for urine, skin has old chest tube sites to right side, dressings in place, mepilex to coccyx, pt is a lift to tx, thom, call light in reach.
--- NOTE | 2022-02-28 18:11 | NUR ---
pt was up to chair several times today, didn't tolerate well, complains of abd cramping, notified Dr. Britton, recieved orders for bowel care and gasx, this was give, also medicated with pain meds as allowed, no further changes this shift, call light in reach.
--- NOTE | 2022-03-01 04:44 | NUR ---
SUMMARY: NO ACUTE EVENTS OVERNIGHT. PATIENT AOX4. VSS. PUREWIC IN PLACE PATIENT CANNOT AMBULATE OUT OF BED YET. PAIN MEDS GIVEN PER EMAR. PATIENT HAS A PRODUCTIVE COUGH. PATIENT HAD A LOT OF CRAMPING IN ABDOMEN BUT RESOLVED AFTER SHE HAD A BOWEL MOVEMENT. PATIENT DID NOT WANT TO TAKE PRN BENTYL. ORAL ANTIBIOTICS GIVEN. NASAL CANNULA 2L O2. CALL LIGHT IN REACH. PATIENT IN SPECIALTY AIR BED.
--- NOTE | 2022-03-01 14:47 | NUR ---
REPOSITIONING PT SCREAMS THAT HER BUTTOCKS HURTS WHILE INTHE CHAIR. REFUSES TO LAY OFF HER BUTT IN BED. TALKED WITH DR ZAIDA ALVAREZ FAMILY ABOUT PT UNWILLINGNESS TO REPOSITON. PT IS IN A BARIATRIC BED WITH AIR MATTRESS. CONTINUE POC.
--- NOTE | 2022-03-01 16:43 | NUR ---
EVENING NOTE PT IN BED. SHE C/O LOUDLY THAT HER TAIL BONE HURTS AND SHE CAN'T SIT UP IN THE CHAIR BUT SHE REFUSES TO TURN SIDE TO SIDE WHILE IN BED. SHE WANTS TO LAY FLT ON HER BACK. SHE DEMANDS, LOUDLY, FOR LARGE REGULAR PEPSI (3 SO FAR TOFAY). TALKED WITH HER ABOUT HER BLOOD SUGARS. SHE DENIED THAT SHE HAS BLOOD SUGAR ISSUES. PUR WICK IN [place] AND WORKING WELL. SHE REALLY LIKES IT. GOOD OUTPT. LIFT TO AND FROM CHAIR. SHE DID PARTICIPATE IN THERAPIES. TODAY SHE WANTS TO GO THE REHAB. VSS. PICCLINE RIGHT UE PATENT. CONTINUE POC.
[2022-03-01 22:08] LABS: ALKALINE PHOSPHATASE, S 561 IU/L (44-121); BONE FRACTION: 43 % (14-68); INTESTINAL FRAC.: 2 % (0-18); LIVER FRACTION: 55 % (18-85)
--- NOTE | 2022-03-02 04:29 | NUR ---
MEDIA SERVICES COORDINATOR SUMMARY VSS. RR EVEN AND UNLABORED ON 3L NC. NO ACUTE EVENTS THROUGHOUT THE NIGHT. PAIN ASSESSED AND MEDICATED PER EMAR. PURWICK IN PLACE. BED LOW AND LOCKED. CALL LIGHT WITHIN REACH. THIS RN WILL CONTINUE TO MONITOR.
--- NOTE | 2022-03-02 18:33 | NUR ---
EVENINGNOTE PT AWAKE AND ALERT WITH DAUGHTER AT BEDSIDE. EATING WELL. SHE HAS BEEN VERY MOTIVATED TODAY TO PARTICIPATE WITH BED MOBILITY AND SELF CARE SHE COULD TOLERATE. COVERED BLOOD SUGARS WITH EACH MEAL. DRINKING LESS PEPSI AND MORE WATER. PUR WICK CHANGED PER POLICY. DRESSING TO COCCYX WOUND CHANGED. PICCLINE DRESSING INTACT. FLUSHES AND DRAWS EASILT. CAPS CHANGED. MEDICATED FOR PAIN X2. PAIN LOCATION IS HER COCCYX WOUND. ENCOURAGED TO TURN SIDE TO SIDE EXCEPT FOR MEALS. CONTINUE POC.
--- NOTE | 2022-03-03 03:52 | NUR ---
FAN BALANCER SUMMARY NO ACUTE EVENTS THROUGHOUT THE NIGHT. VSS. RR EVEN AND UNLABORED ON 3L NC. PAIN ASSESSED AND MEDICATED PER EMAR. Q2-HR REPOSITIONING. PATIENT OBSERVED TO BE SLEEPING COMFORTABLY THROUGHOUT THE NIGHT. BED LOW AND LOCKED. CALL LIGHT WITHIN REACH. THIS RN WILL CONTINUE TO MONITOR.
--- NOTE | 2022-03-03 08:00 | NUR ---
Pt laying in bed awake, a/ox3, pleasant and cooperative with care, follows commadns well, reports she slept well last night, and physical therapy is going really well, and believes she is improving, lungs are dim in bases, on 3 liters o2 currently, has a productive cough, hrr, no edema noted, ppp+2, cap refill <3 sec, vs stable, afebrile, iv is picc line to torito site is clear and patent, btx4, abd large soft nontender, reports the cramping she had last week is gone, reports bm's, purwik in place for urine, skin has mepilex to coccyx, and three chest tube sites to the right side, moves arms ok, dpfe is = and strong, but is still a lift to get to the chair, thom, call light in reach.
[2022-03-03 12:49] LABS: Influenza A, PCR NEGATIVE (NEGATIVE); Influenza B, PCR NEGATIVE (NEGATIVE); Resp Syncytial Virus, PCR NEGATIVE (NEGATIVE); SARS-Cov-2 (COVID-19) PCR, MMC NEGATIVE (NEGATIVE)
--- NOTE | 2022-03-03 14:06 | NUR ---
Spiritual care visit conducted. i visit with patient's dtr outside of patient's rm. The dtr tells me about the pt's improvement, her upcoming move to a SNF and the general peace and positivity the family feels. I celebrate the victories, reinforce the helpful attitudes and practices and provide therapeutic listening and prayer. I will continue to remain available to patient and family.
--- NOTE | 2022-03-03 16:45 | NUR ---
Pt has been discharged to [facility] for rehab, picc line was removed by charge entry, site is clear, she had a bath this am, left via wheelchair with transport in attendence, with all her belongings. medicated for pain before she left. report was given to recieving nurse Thurman at 1500.
[2022-03-08] MEDS ORDERED: Macrobid 100 M100 MG PO (10:45)
== END 2022-03-03 16:48 | DRG 177 ==
LOC: MEDS 11:06
PROVIDERS: Internal Medicine; Nurse Practitioner Acute Care; ADMIT Internal Medicine
DX: J15.212 Pneumonia due to Methicillin resistant Staphylococcus aureus (principal); G92.8 Other toxic encephalopathy; J44.0 Chronic obstructive pulmonary disease with (acute) lower respiratory infection; L89.152 Pressure ulcer of sacral region, stage 2; Z20.822 Contact with and (suspected) exposure to COVID-19; I12.9 Hypertensive chronic kidney disease with stage 1 through stage 4 chronic kidney disease, or unspecified chronic kidney disease; N18.30 Chronic kidney disease, stage 3 unspecified; E11.22 Type 2 diabetes mellitus with diabetic chronic kidney disease; K21.9 Gastro-esophageal reflux disease without esophagitis; E66.01 Morbid (severe) obesity due to excess calories; T42.4X5A Adverse effect of benzodiazepines, initial encounter; F32.A Depression, unspecified; F17.210 Nicotine dependence, cigarettes, uncomplicated; M06.9 Rheumatoid arthritis, unspecified; M79.7 Fibromyalgia; Z90.49 Acquired absence of other specified parts of digestive tract; Z90.710 Acquired absence of both cervix and uterus; Z98.891 History of uterine scar from previous surgery; Z88.1 Allergy status to other antibiotic agents; Z88.2 Allergy status to sulfonamides; Z88.5 Allergy status to narcotic agent; Z88.8 Allergy status to other drugs, medicaments and biological substances
CPT/HCPCS: 0241U; 36415; 71045; 71250; 80048; 80053; 80202; 82565; 82607; 82728; 82746; 82947; 83540; 83550; 83735; 84075; 84080; 85014; 85018; 85025; 85027; 94640; 94664; 94760; 97110; 97129; 97130; 97162; 97166; 97530; 97535; A9270; J1650; J2916; J3370; J7050

== ENCOUNTER 2022-04-08 01:21 | Day surgery (SDC) | payer OTHER ==
[~2022-04-08 01:21] MED LIST changes: +CLON1 PO; +Macrobid 100 M100 MG PO; +PANT40 PO
--- NOTE | 2022-04-08 16:22 | NUR ---
CURRENTLY PT IS RESIDING AT [facility] FOR IV ANTIBIOTICS AND THERAPY.
[2022-04-08] MEDS ORDERED: ATEN25 PO (16:34)
[2022-04-08] MEDS ORDERED: AIRDUO RESPICL1 EAC4 INH (16:37)
[2022-04-08] MEDS ORDERED: DOCUZEN 8.6-501 EACH PO (16:38)
[2022-04-08] MEDS ORDERED: METF500 PO (16:38)
[2022-04-08] MEDS ORDERED: PROBIOTIC1 EA13 PO (16:38)
[2022-04-08] MEDS ORDERED: Bentyl20 MG PO (16:39)
[2022-04-08] MEDS ORDERED: Norco 5-325 Ta1 EACH PO (16:42)
[2022-04-08] MEDS ORDERED: SIME80CH PO (16:43)
== END 2022-04-08 15:50 | disposition home or self-care (01) ==
LOC: ATC 01:21
DX: A41.9 Sepsis, unspecified organism (principal); R65.21 Severe sepsis with septic shock; J44.9 Chronic obstructive pulmonary disease, unspecified; N18.30 Chronic kidney disease, stage 3 unspecified; E11.22 Type 2 diabetes mellitus with diabetic chronic kidney disease
CPT/HCPCS: 99212; C1751

== ENCOUNTER → 2022-07-14 | Outpatient (CLI) | payer OTHER ==
[~2022-07-14] MED LIST changes: +AIRDUO RESPICL1 EAC4 INH; +Bentyl20 MG PO; +DOCUZEN 8.6-501 EACH PO; +PROBIOTIC1 EA13 PO; +SIME80CH PO
== END ==
LOC: LAB SHORT 17:55 → LAB 17:55
DX: R30.0 Dysuria (principal)
CPT/HCPCS: 87077; 87086; 87186

== ENCOUNTER 2024-02-01 11:53 | Emergency (ER) | payer OTHER ==
[~2024-02-01] VITALS: Ht 165.1 cm; Wt 99.8 kg
[2024-02-01] MEDS ORDERED: EUTHYROX125 MC1 PO (13:13)
[2024-02-01] MEDS ORDERED: OXYC10TA19 PO (13:14)
[2024-02-01] MEDS ORDERED: ATORVASTATIN CA20 MG PO (13:14)
[2024-02-01] MEDS ORDERED: ALLOPURINOL100 M1 PO (13:14)
[2024-02-01] MEDS ORDERED: Cetirizine HCl10 MG PO (13:15)
[2024-02-01] MEDS ORDERED: BUDESONIDE-FO10.2 G2 INH (13:15)
[2024-02-01] MEDS ORDERED: HYDROmorphone HCl/Pf 1MG SYR IV ONE (13:25)
[2024-02-01] MEDS ORDERED: HYDROmorphone HCl/Pf 1MG SYR IM ONE (13:45)
[2024-02-01] MEDS ORDERED: OxyCODONE HCL 5 MG TAB PO ONE (15:05)
[2024-02-01] MEDS ORDERED: Ketorolac Tromethamine 15mg Vial IM ONE (15:05)
[2024-02-01 15:15] VITALS: BP 122/82
[2024-02-01] MEDS ORDERED: Roxicodone5 MG PO (15:27)
== END 2024-02-01 15:53 | disposition home or self-care (01) ==
LOC: ER 11:53
DX: S42.211A Unspecified displaced fracture of surgical neck of right humerus, initial encounter for closed fracture (principal); S42.251A Displaced fracture of greater tuberosity of right humerus, initial encounter for closed fracture; E11.9 Type 2 diabetes mellitus without complications; J44.9 Chronic obstructive pulmonary disease, unspecified; M06.9 Rheumatoid arthritis, unspecified; F17.290 Nicotine dependence, other tobacco product, uncomplicated; Z79.84 Long term (current) use of oral hypoglycemic drugs; Z79.4 Long term (current) use of insulin; Z79.51 Long term (current) use of inhaled steroids; Z79.899 Other long term (current) drug therapy; Z88.2 Allergy status to sulfonamides; Z88.1 Allergy status to other antibiotic agents; Z88.5 Allergy status to narcotic agent; Z88.8 Allergy status to other drugs, medicaments and biological substances; W01.0XXA Fall on same level from slipping, tripping and stumbling without subsequent striking against object, initial encounter
CPT/HCPCS: 29105; 73030; 73200; 96372-59; 99284-25; A9270; J1171; J1885

== ENCOUNTER 2024-03-07 09:35 | Day surgery (SDC) | payer OTHER ==
[~2024-03-07] VITALS: Ht 177.8 cm; Wt 99.0 kg
[~2024-03-07 09:35] MED LIST changes: +ALLOPURINOL100 M1 PO; +ATORVASTATIN CA20 MG PO; +BUDESONIDE-FO10.2 G2 INH; +Cetirizine HCl10 MG PO; +EUTHYROX125 MC1 PO; +Lactated Ringer's 1,000 ML IV ONE; +OXYC10TA19 PO; +Roxicodone5 MG PO
[2024-03-07] MEDS ORDERED: CeFAZolin Sodium 2,000 MG VIAL ONE (09:50)
[2024-03-07] MEDS ORDERED: Acetaminophen 500 MG Tab ONE (09:50)
[2024-03-07] MEDS ORDERED: Tranexamic Acid 100 ML IV ONE (09:50)
[2024-03-07] MEDS ORDERED: OxyCODONE HCL 10 MG TABCR ONE (10:06)
[2024-03-07] MEDS ORDERED: Ropivacaine 0.5% HCL/PF 5 MG/ML 30ML Vial ONE (10:24)
[2024-03-07] MEDS ORDERED: Lidocaine HCl 4% 5 ML SDA ONE (10:24)
[2024-03-07] MEDS ORDERED: propofoL 150 ML IV ONE (10:24)
[2024-03-07] MEDS ORDERED: HYDROmorphone HCl/Pf 1MG SYR ONE ×3 (10:29→13:02)
[2024-03-07] MEDS ORDERED: Norco 10-325 T1 EACH PO (10:37)
--- NOTE | 2024-03-07 11:15 | NUR ---
03/07/24 1115 HAZEL OLEA 1058 TIMEOUT FOR NERVE BLOCK COMPLETED AT BEDSIDE WITH THIS RN, PT, ANESTHESIA AND PT DAUGHTER. SPO2 MONITORED T/O NERVE BLOCK PROCEDURE AND REMAINED WNL. NO COMPLICATIONS, NERVE BLOCK COMPLETED.
[2024-03-07] MEDS ORDERED: Ketamine HCl 100 MG / ML 5ML Vial ONE (11:24)
[2024-03-07] MEDS ORDERED: FentaNYL Citrate 50 MCG/ML 2 ML Injection ONE ×2 (11:32→12:37)
--- NOTE | 2024-03-07 11:47 | NUR ---
03/07/24 1147 Denisse Leonard PT HAS MULTPLE AREAS OF SMALL OPEN WOUNDS IN MULTIPLE STAGES OF HEALING AND SCABBING BILATERAL ARMS
[2024-03-07] MEDS ORDERED: propofoL 40 ML IV ONE (12:28)
[2024-03-07] MEDS ORDERED: propofoL 20 ML IV ONE ×2 (13:00→13:20)
[2024-03-07] MEDS ORDERED: Dexamethasone Sod Phos 10 MG/ML 1ML VIAL ONE (14:05)
[2024-03-07] MEDS ORDERED: Metoclopramide HCl 5MG / ML 2ML Vial ONE (14:05)
[2024-03-07] MEDS ORDERED: Ondansetron HCl 2 MG / ML 2ML Vial ONE (14:05)
[2024-03-07] MEDS ORDERED: Glycopyrrolate 0.2 MG/ML 5ML VIAL ONE (14:05)
[2024-03-07] MEDS ORDERED: Ketorolac Tromethamine 30mg Vial ONE (14:05)
--- NOTE | 2024-03-07 14:07 | NUR ---
03/07/24 1407 Sil Singletary 1400: PT'S DAUGHTER, TALYA, BROUGHT BACK TO BEDSIDE. PT'S DAUGHTER HAS PT'S BELONGINGS W/ HER.
--- NOTE | 2024-03-07 14:11 | NUR ---
03/07/24 1412 Sil Singletary PT COUGHING, DEEP BREATHING & USING IS APPROPRIATELY AT THIS TIME.
[2024-03-07 14:13] VITALS: BP 139/80
== END 2024-03-07 15:20 | disposition home or self-care (01) ==
LOC: ORSCSDS 09:35
PROVIDERS: Orthopaedic Surgery
PROC: 0PSC04Z Reposition Right Humeral Head with Internal Fixation Device, Open Approach (ICD-10-PCS; principal; 2024-03-07 11:00)
PROC: 0RRJ00Z Replacement of Right Shoulder Joint with Reverse Ball and Socket Synthetic Substitute, Open Approach (ICD-10-PCS; principal; 2024-03-07 11:00)
DX: S42.251A Displaced fracture of greater tuberosity of right humerus, initial encounter for closed fracture (principal); S42.261A Displaced fracture of lesser tuberosity of right humerus, initial encounter for closed fracture; W01.190A Fall on same level from slipping, tripping and stumbling with subsequent striking against furniture, initial encounter; F17.290 Nicotine dependence, other tobacco product, uncomplicated; E11.22 Type 2 diabetes mellitus with diabetic chronic kidney disease; I12.9 Hypertensive chronic kidney disease with stage 1 through stage 4 chronic kidney disease, or unspecified chronic kidney disease; N18.9 Chronic kidney disease, unspecified; E05.90 Thyrotoxicosis, unspecified without thyrotoxic crisis or storm; J44.9 Chronic obstructive pulmonary disease, unspecified; Z85.43 Personal history of malignant neoplasm of ovary; M79.7 Fibromyalgia; Z79.84 Long term (current) use of oral hypoglycemic drugs; Z79.899 Other long term (current) drug therapy
CPT/HCPCS: 73030; 82947; A9270; C1713; C1776; J0690; J1100; J1171; J1885; J2003; J2405; J2704; J2765; J2795; J3010; J7120